=== PATIENT | male | born 1955 | race Caucasian/White ===

== ENCOUNTER 2017-11-04 20:04 | Inpatient (IN) | payer OTHER ==
[~2017-11-04] VITALS: Ht 180.3 cm; Wt 113.9 kg
[2017-11-04] MEDS ORDERED: fentaNYL PF VIAL 100 MCG/2 ML VIAL IV ONE ×2 (20:15→21:30)
[2017-11-04 20:17] LABS: BASO # 0.1 x10^3/uL (0.0-0.2); BASO % 1 % (0-3); EOS # 0.2 x10^3/uL (0.0-0.7); EOS % 2 % (0-3); HEMATOCRIT 42.4 % (39.0-53.0); HEMOGLOBIN 14.8 g/dL (13.0-17.5); LYMPH # 2.8 x10^3/uL (1.0-4.8); LYMPH % 28 % (24-48); MEAN CORPUSCULAR HEMOGLOBIN 31 pg (25-35); MEAN CORPUSCULAR HGB CONC 35 g/dL (31-37); MEAN CORPUSCULAR VOLUME 88 fL (79-100); MONO # 0.8 x10^3/uL (0.0-1.1); MONO % 8 % (0-9); NEUT # 6.1 x10^3uL (1.8-7.7); NEUT % 62 % (31-73); PLATELET COUNT 232 x10^3/uL (140-400); RED BLOOD COUNT 4.81 x10^6/uL (4.30-5.70); RED CELL DISTRIBUTION WIDTH 13.6 % (11.5-14.5); WHITE BLOOD COUNT 9.9 x10^3/uL (4.0-11.0)
[2017-11-04 20:25] LABS: CALCIUM 9.3 mg/dL (8.5-10.1); CREATININE 1.2 mg/dL (0.7-1.3); POTASSIUM 3.3 mmol/L (3.5-5.1)
[2017-11-04] MEDS ORDERED: HEPARIN for IV BOLUS 10,000 UNIT/10 ML VIAL. IV ONE (20:30)
[2017-11-04] MEDS ORDERED: NICOTINE 21MG PATCH. TD PRN (20:30)
[2017-11-04] MEDS ORDERED: POTASSIUM CHLORIDE 20 MEQ TABLET.ER. PO ONE (20:30)
[2017-11-04] MEDS ORDERED: HEPARIN 25,000UTS/500ML PREMIX 0 ML IV ONE (20:30)
[2017-11-04] MEDS ORDERED: ZOLPIDEM 5 MG TABLET. PO PRN (20:30)
[2017-11-04] MEDS ORDERED: NITROGLYCERIN PREMIX 250 ML IV ONE (20:30)
[2017-11-04] MEDS ORDERED: HYDROcodone/APAP 5/325MG 1 TAB TABLET PO PRN (20:30)
[2017-11-04] MEDS ORDERED: MORPHINE SULFATE 2 MG/ML VIAL. IV PRN (20:30)
[2017-11-04 20:31] LABS: ALBUMIN 4.4 g/dL (3.4-5.0); ALBUMIN/GLOBULIN RATIO 1.4 (1.0-1.7); TOTAL BILIRUBIN 0.4 mg/dL (0.2-1.0); TOTAL PROTEIN 7.6 g/dL (6.4-8.2)
--- NOTE | 2017-11-04 20:36 | PHYS DOC ---
Adult General Chief Complaint Chief Complaint: CHEST PAIN HPI HPI Patient is a 61 year old male who is presenting with chest pain by my and was apparently he was golfing all day today he had nausea he really wasn't feeling good and we wanted to eat dinner he had severe cramping of his chest center of the chest nonradiating and come in by sweating and he really according to the paramedics was extremely uncomfortable left bundle branch block was noted and there rhythm strip they gave aspirin and gave nitroglycerin that he activated a STEMI alert in the field. On my arrival to the room 2 minutes after the patient got here the patient was in severe distress sweating He has a family history of coronary artery disease he has a history of high cholesterol. Pain started about 1 hour ago Review of Systems Review of Systems Limited by acuity Current Medications Current Medications Current Medications Medications (Trade) Dose Ordered Sig/Martita Start Time Stop Time Status Last Admin Dose Admin Acetaminophen/ Hydrocodone Bitart (Lortab 5/325) 1 tab PRN Q4HRS PRN 11/04/17 20:30 Fentanyl Citrate (Fentanyl 2ml Vial) 50 mcg 1X ONCE 11/04/17 20:15 11/04/17 20:26 DC 11/04/17 20:19 50 MCG Heparin Sodium (Porcine) (Heparin Sodium) 4,000 unit 1X ONCE 11/04/17 20:30 11/04/17 20:31 DC 11/04/17 20:33 4,000 UNIT Heparin Sodium/ Dextrose 500 ml @ As Directed STK-MED ONCE 11/04/17 20:30 11/04/17 20:31 DC Morphine Sulfate (Morphine Sulfate) 2 mg PRN Q2HR PRN 11/04/17 20:30 Nicotine (Nicoderm Cq 21mg) 1 patch PRN DAILY PRN 11/04/17 20:30 Nitroglycerin/ Dextrose 250 ml @ 0 mls/hr 1X ONCE 11/04/17 20:30 11/04/17 20:31 DC 11/04/17 20:32 1.5 MLS/HR Potassium Chloride (Klor-Con) 40 meq 1X ONCE 11/04/17 20:30 11/04/17 20:36 DC Zolpidem Tartrate (Ambien) 5 mg PRN QHS PRN 11/04/17 20:30 Allergies Allergies Allergies Coded Allergies Type Severity Reaction Last Updated Verified No Known Drug Allergies 11/04/17 No Physical Exam Physical Exam Constitutional: Well developed, well nourished, moderate distress he is sweaty. HENT: Normocephalic, atraumatic, bilateral external ears normal, oropharynx moist, no oral exudates, nose normal. [] Eyes: PERRLA, EOMI, conjunctiva normal, no discharge. [] Neck: Normal range of motion, no tenderness, supple, no stridor. [] Cardiovascular:Heart rate regular rhythm, no murmur [] Lungs & Thorax: Bilateral breath sounds clear to auscultation [] Abdomen: Bowel sounds normal, soft, no tenderness, no masses, no pulsatile masses. [] Skin: diaphoretic Back: No tenderness, no CVA tenderness. [] Extremities: No tenderness, no cyanosis, no clubbing, ROM intact, no edema. [] Neurologic: Alert and oriented X 3, normal motor function, normal sensory function, no focal deficits noted. [] Psychologic: Affect normal, judgement normal, mood normal. [] Current Patient Data Vital Signs Vital Signs Date Time Temp Pulse Resp B/P (MAP) Pulse Ox O2 Delivery O2 Flow Rate FiO2 11/04/17 20:19 22 99 Nasal Cannula 2.0 11/04/17 20:05 97.7 84 174/81 (112) 97.7 Lab Values Laboratory Tests Test 11/04/17 20:09 11/04/17 20:10 POC Troponin I 0.00 ng/ml (<0.08) White Blood Count 9.9 x10^3/uL (4.0-11.0) Red Blood Count 4.81 x10^6/uL (4.30-5.70) Hemoglobin 14.8 g/dL (13.0-17.5) Hematocrit 42.4 % (39.0-53.0) Mean Corpuscular Volume 88 fL (79-100) Mean Corpuscular Hemoglobin 31 pg (25-35) Mean Corpuscular Hemoglobin Concent 35 g/dL (31-37) Red Cell Distribution Width 13.6 % (11.5-14.5) Platelet Count 232 x10^3/uL (140-400) Neutrophils (%) (Auto) 62 % (31-73) Lymphocytes (%) (Auto) 28 % (24-48) Monocytes (%) (Auto) 8 % (0-9) Eosinophils (%) (Auto) 2 % (0-3) Basophils (%) (Auto) 1 % (0-3) Neutrophils # (Auto) 6.1 x10^3uL (1.8-7.7) Lymphocytes # (Auto) 2.8 x10^3/uL (1.0-4.8) Monocytes # (Auto) 0.8 x10^3/uL (0.0-1.1) Eosinophils # (Auto) 0.2 x10^3/uL (0.0-0.7) Basophils # (Auto) 0.1 x10^3/uL (0.0-0.2) Sodium Level 136 mmol/L (136-145) Potassium Level 3.3 mmol/L (3.5-5.1) L Chloride Level 98 mmol/L (98-107) Carbon Dioxide Level 22 mmol/L (21-32) Anion Gap 16 (6-14) H Blood Urea Nitrogen 12 mg/dL (8-26) Creatinine 1.2 mg/dL (0.7-1.3) Estimated GFR (Cockcroft-Gault) 62.0 BUN/Creatinine Ratio 10 (6-20) Glucose Level 116 mg/dL (70-99) H Calcium Level 9.3 mg/dL (8.5-10.1) Total Bilirubin 0.4 mg/dL (0.2-1.0) Aspartate Amino Transferase (AST) 87 U/L (15-37) H Alanine Aminotransferase (ALT) 94 U/L (16-63) H Alkaline Phosphatase 73 U/L (46-116) Total Protein 7.6 g/dL (6.4-8.2) Albumin 4.4 g/dL (3.4-5.0) Albumin/Globulin Ratio 1.4 (1.0-1.7) Laboratory Tests 11/04/17 20:10 Laboratory Tests 11/04/17 20:10 EKG EKG []EKG #1 did show a left bundle-branch block with no sgarbossa review this at 8: 07 PM discussed it with the partner integration planner at 8:10 PM. We did a second EKG about 10 minutes later I reviewed that EKG as well that showed similar findings there was no obvious ischemia in light of the left bundle-branch block but there is also no old EKG. Initially at 8:10 PM we were planning to wait for clinical observation and troponins but then at 8:22 PM I spoke with Dr. Beltrán again and we opted to activate a STEMI alert due to severity of symptoms and no old EKG Radiology/Procedures Radiology/Procedures [] Impressions: Chest x-ray negative interpreted by me the time of encounter. Course & Med Decision Making Course & Med Decision Making Critical care time was 35 minutes exclusive of procedures.Pertinent Labs and Imaging studies reviewed. (See chart for details) []This a 61-year-old male with a history family history of coronary disease as well as high cholesterol was presenting with severe chest pain and found to have a left bundle-branch block on the EKG no old EKG in our system. I spoke with Dr. Beltrán operations support manager for cardiology several times during the emergency room visit. We talked at around 8:10 PM and then again at 8:22 PM. He reviewed the EKGs and the clinical picture and ultimately after discussion we both agreed to activate the STEMI [employer] Helper due to the severity of the patient's symptoms and the lack of old EKG. Patient is aware. Patient was given a dose of fentanyl in the emergency room on reevaluation at 8:30 PM he was starting to feel a little bit better. A nitro drip was initiated at the request of Dr. Beltrán a heparin bolus was given per usual This pain really denies like a dissection or pulmonary embolism. Family was notified as well aspirin prior to arrival,. Dragon Disclaimer Dragon Disclaimer This electronic medical record was generated, in whole or in part, using a voice recognition dictation system. Departure Departure Impression: Primary Impression: Chest pain Disposition: ADMITTED INPATIENT Admitting Physician: Nancy Muñoz Condition: CRITICAL DAVID OSBORN MD Nov 04, 2017 20:36
[2017-11-04] MEDS ORDERED: IODIXANOL 320 MG/ML 100 ML VIAL. ONE (20:53)
[2017-11-04] MEDS ORDERED: LIDOCAINE 1% PF 30 ML VIAL. ONE (20:53)
[2017-11-04] MEDS ORDERED: MIDAZOLAM HCL/PF 2 MG/2 ML VIAL. ONE (21:07)
[2017-11-04] MEDS ORDERED: fentaNYL PF VIAL 100 MCG/2 ML VIAL ONE (21:07)
--- NOTE | 2017-11-04 21:10 | PDOC ---
MODERATE SEDATION ASSESSMENT RISKS/ALTERNATIVES Risks/Alternatives Risks and alternatives of this type of sedation and procedure discussed with: RISK/ALTERNATIVES: Patient H & P ON CHART H & P H & P on chart and reviewed for co-morbid conditions and appropriate labs. H&P ON CHART: Yes STATUS PREG STATUS ASSESSED: N/A MEDS/ALLERGIES REVIEWED Meds/Allergies Reviewed Medications and Allergies including time and route of recently administered narcotics and sedatives. MEDS/ALLERGIES REVIEWED: Yes ASA RATING ASA RATING: II AIRWAY ASSESSMENT Airway Assessment Airway patency, oral function limitations, presence of caps, crowns, dentures, partials, and ability to extend neck assessed. AIRWAY ASSESSMENT: Yes MALLAMPATI SCORE MALLAMPATI SCORE: II PRE-SEDATION ASSESSMENT PRE-SEDATION ASSESSMENT: Yes OSBALDO PIZARRO MD Nov 04, 2017 21:10
[2017-11-04] MEDS ORDERED: LIDOCAINE 1% PF 30 ML VIAL. INJ ONE (21:30)
[2017-11-04] MEDS ORDERED: IODIXANOL 320 MG/ML 100 ML VIAL. IART ONE (21:30)
[2017-11-04] MEDS ORDERED: MIDAZOLAM HCL/PF 2 MG/2 ML VIAL. IV ONE (21:30)
[2017-11-04 21:58] VITALS: BP 150/68
[2017-11-04 22:15] VITALS: BP 126/55
--- NOTE | 2017-11-04 22:16 | PDOC2 ---
CONSULT Date of Consult Date of Consult DATE: 11/04/17 TIME: 22:05 Reason for Consult Reason for Consult: Chest pain Referring Physician Referring Physician: Dr. Muñoz Identification/Chief Complaint Chief Complaint chest pain Source Source: Patient History of Present Illness Reason for Visit: 61 year old male who developed severe chest pain approximately one hour ago. He had been playing golf in severe heat earlier today and began to feel nauseated and weak. History of HLD but no history of CAD or CHF. Positive family history of CAD. The patient continued to have pain and diaphoresis in the ER. EKG showed a probable L bundle branch block. No old EKGs for comparison. Past Medical History Cardiovascular: Hyperlipidemia Past Surgical History Past Surgical History: No pertinent history Family History Family History: Coronary Artery Disease Social History No Current Medications Current Medications Current Medications Fentanyl Citrate (Fentanyl 2ml Vial) 50 mcg 1X ONCE IV Last administered on 11/04/17at 20:19; Start 11/04/17 at 20:15; Stop 11/04/17 at 20:26; Status DC Nitroglycerin/ Dextrose 250 ml @ 0 mls/hr 1X ONCE IV Last administered on at 20:32; Start 11/04/17 at 20:30; Stop 11/04/17 at 20:31; Status DC Heparin Sodium (Porcine) (Heparin Sodium) 4,000 unit 1X ONCE IV Last administered on 11/04/17at 20:33; Start 11/04/17 at 20:30; Stop 11/04/17 at 20:31; Status DC Heparin Sodium/ Dextrose 500 ml @ As Directed STK-MED ONCE IV ; Start 11/04/17 at 20:30; Stop 11/04/17 at 20:31; Status DC Potassium Chloride (Klor-Con) 40 meq 1X ONCE PO ; Start 11/04/17 at 20:30; Stop 11/04/17 at 20:36; Status DC Zolpidem Tartrate (Ambien) 5 mg PRN QHS PRN PO INSOMNIA; Start 11/04/17 at 20:30 Morphine Sulfate (Morphine Sulfate) 2 mg PRN Q2HR PRN IV PAIN; Start 11/04/17 at 20:30 Acetaminophen/ Hydrocodone Bitart (Lortab 5/325) 1 tab PRN Q4HRS PRN PO PAIN; Start 11/04/17 at 20:30 Nicotine (Nicoderm Cq 21mg) 1 patch PRN DAILY PRN TD SMOKING CESSATION; Start 11/04/17 at 20:30 Iodixanol (Visipaque 320) 100 ml STK-MED ONCE .ROUTE ; Start 11/04/17 at 20:53; Stop 11/04/17 at 20:54; Status DC Lidocaine HCl (Xylocaine 1% Pf 30ml Vial) 30 ml STK-MED ONCE .ROUTE ; Start 11/04 at 20:53; Stop 11/04/17 at 20:54; Status DC Heparin Sodium/ Sodium Chloride 1,000 ml @ As Directed STK-MED ONCE .ROUTE ; Start 11/04/17 at 20:53; Stop 11/04/17 at 20:54; Status DC Heparin Sodium/ Sodium Chloride 500 ml @ As Directed STK-MED ONCE .ROUTE ; Start 11/04/17 at 21:02; Stop 11/04/17 at 21:03; Status DC Fentanyl Citrate (Fentanyl 2ml Vial) 100 mcg STK-MED ONCE .ROUTE ; Start at 21:07; Stop 11/04/17 at 21:08; Status DC Midazolam HCl (Versed) 2 mg STK-MED ONCE .ROUTE ; Start 11/04/17 at 21:07; Stop 11/04/17 at 21:08; Status DC Heparin Sodium/ Sodium Chloride (HEPARIN for ARTERIAL LINE FLUSH) 1,000 unit 1X ONCE IART Last administered on 11/04/17at 21:30; Start 11/04/17 at 21:30; Stop 11/04/17 at 21:31; Status DC Midazolam HCl (Versed) 2 mg 1X ONCE IV ; Start 11/04/17 at 21:30; Stop 11/04/17 at 21:31; Status DC Fentanyl Citrate (Fentanyl 2ml Vial) 100 mcg 1X ONCE IV ; Start 11/04/17 at 21: 30; Stop 11/04/17 at 21:31; Status DC Iodixanol (Visipaque 320) 100 ml 1X ONCE IART Last administered on 11/04/17at 21 :30; Start 11/04/17 at 21:30; Stop 11/04/17 at 21:31; Status DC Lidocaine HCl (Xylocaine 1% Pf 30ml Vial) 30 ml 1X ONCE INJ Last administered on 11/04/17at 21:30; Start 11/04/17 at 21:30; Stop 11/04/17 at 21:31; Status DC Allergies Allergies: Coded Allergies: No Known Drug Allergies (Unverified , 11/04/17) ROS Respiratory: YES: Shortness of breath Cardiovascular: yes Chest Pain Gastrointestinal: Yes Nausea Physical Exam General: Other (chest pain continues) HEENT: EOMI Lungs: Clear to auscultation Heart: Regular rate Abdomen: Normal bowel sounds Vitals VITALS Vital Signs Date Time Temp Pulse Resp B/P (MAP) Pulse Ox O2 Delivery O2 Flow Rate FiO2 11/04/17 21:58 73 18 95 Room Air 11/04/17 20:19 2.0 11/04/17 20:05 97.7 174/81 (112) 97.7 Labs Labs Laboratory Tests Test 11/04/17 20:09 11/04/17 20:10 Bedside Troponin I 0.00 ng/ml (<0.08) White Blood Count 9.9 x10^3/uL (4.0-11.0) Red Blood Count 4.81 x10^6/uL (4.30-5.70) Hemoglobin 14.8 g/dL (13.0-17.5) Hematocrit 42.4 % (39.0-53.0) Mean Corpuscular Volume 88 fL (79-100) Mean Corpuscular Hemoglobin 31 pg (25-35) Mean Corpuscular Hemoglobin Concent 35 g/dL (31-37) Red Cell Distribution Width 13.6 % (11.5-14.5) Platelet Count 232 x10^3/uL (140-400) Neutrophils (%) (Auto) 62 % (31-73) Lymphocytes (%) (Auto) 28 % (24-48) Monocytes (%) (Auto) 8 % (0-9) Eosinophils (%) (Auto) 2 % (0-3) Basophils (%) (Auto) 1 % (0-3) Neutrophils # (Auto) 6.1 x10^3uL (1.8-7.7) Lymphocytes # (Auto) 2.8 x10^3/uL (1.0-4.8) Monocytes # (Auto) 0.8 x10^3/uL (0.0-1.1) Eosinophils # (Auto) 0.2 x10^3/uL (0.0-0.7) Basophils # (Auto) 0.1 x10^3/uL (0.0-0.2) Sodium Level 136 mmol/L (136-145) Potassium Level 3.3 mmol/L (3.5-5.1) Chloride Level 98 mmol/L (98-107) Carbon Dioxide Level 22 mmol/L (21-32) Anion Gap 16 (6-14) Blood Urea Nitrogen 12 mg/dL (8-26) Creatinine 1.2 mg/dL (0.7-1.3) Estimated GFR (Cockcroft-Gault) 62.0 BUN/Creatinine Ratio 10 (6-20) Glucose Level 116 mg/dL (70-99) Calcium Level 9.3 mg/dL (8.5-10.1) Total Bilirubin 0.4 mg/dL (0.2-1.0) Aspartate Amino Transf (AST/SGOT) 87 U/L (15-37) Alanine Aminotransferase (ALT/SGPT) 94 U/L (16-63) Alkaline Phosphatase 73 U/L (46-116) Total Protein 7.6 g/dL (6.4-8.2) Albumin 4.4 g/dL (3.4-5.0) Albumin/Globulin Ratio 1.4 (1.0-1.7) Laboratory Tests Test 11/04/17 20:09 11/04/17 20:10 Bedside Troponin I 0.00 ng/ml (<0.08) White Blood Count 9.9 x10^3/uL (4.0-11.0) Red Blood Count 4.81 x10^6/uL (4.30-5.70) Hemoglobin 14.8 g/dL (13.0-17.5) Hematocrit 42.4 % (39.0-53.0) Mean Corpuscular Volume 88 fL (79-100) Mean Corpuscular Hemoglobin 31 pg (25-35) Mean Corpuscular Hemoglobin Concent 35 g/dL (31-37) Red Cell Distribution Width 13.6 % (11.5-14.5) Platelet Count 232 x10^3/uL (140-400) Neutrophils (%) (Auto) 62 % (31-73) Lymphocytes (%) (Auto) 28 % (24-48) Monocytes (%) (Auto) 8 % (0-9) Eosinophils (%) (Auto) 2 % (0-3) Basophils (%) (Auto) 1 % (0-3) Neutrophils # (Auto) 6.1 x10^3uL (1.8-7.7) Lymphocytes # (Auto) 2.8 x10^3/uL (1.0-4.8) Monocytes # (Auto) 0.8 x10^3/uL (0.0-1.1) Eosinophils # (Auto) 0.2 x10^3/uL (0.0-0.7) Basophils # (Auto) 0.1 x10^3/uL (0.0-0.2) Sodium Level 136 mmol/L (136-145) Potassium Level 3.3 mmol/L (3.5-5.1) Chloride Level 98 mmol/L (98-107) Carbon Dioxide Level 22 mmol/L (21-32) Anion Gap 16 (6-14) Blood Urea Nitrogen 12 mg/dL (8-26) Creatinine 1.2 mg/dL (0.7-1.3) Estimated GFR (Cockcroft-Gault) 62.0 BUN/Creatinine Ratio 10 (6-20) Glucose Level 116 mg/dL (70-99) Calcium Level 9.3 mg/dL (8.5-10.1) Total Bilirubin 0.4 mg/dL (0.2-1.0) Aspartate Amino Transf (AST/SGOT) 87 U/L (15-37) Alanine Aminotransferase (ALT/SGPT) 94 U/L (16-63) Alkaline Phosphatase 73 U/L (46-116) Total Protein 7.6 g/dL (6.4-8.2) Albumin 4.4 g/dL (3.4-5.0) Albumin/Globulin Ratio 1.4 (1.0-1.7) Assessment/Plan Assessment/Plan 1. Chest pain. Severe chest pain now improved post pain medications. EKG with a bundle branch block. Personal history of HLD and a family history of CAD. In this setting believe emergency cath is indicated to check for possible CAD or infarct. Risks and benefits discussed with the patient and his family. He has agreed to proceed. 2. History of HLD. Will check lab and continue statins. 3. Accelerated HTN. Associated with pain. IV NTG at present. 4. HypoK Will replace and monitor. Thank you for allowing us to participate in the care of your patient. OSBALDO PIZARRO MD Nov 04, 2017 22:16
--- NOTE | 2017-11-04 22:28 | PDOC4 ---
OPERATIVE NOTE: Brief cath note. No significant CAD. Intact LV systolic function. Normal aortic root. Treating with IV fluids, NTG for HTN and potassium replacement. Stat d dimer ordered. Discussed with the patient and his family. Also discussed with the ICU. Full report to follow. OSBALDO PIZARRO MD Nov 04, 2017 22:27
[2017-11-04 22:30] VITALS: BP 113/63
[2017-11-04] MEDS ORDERED: oxyCODONE/APAP 5/325 1 TAB TABLET PO PRN (22:30)
[2017-11-04] MEDS ORDERED: NITROGLYCERIN SUBLINGUAL 0.4 MG BOTTLE OF 25. SL PRN (22:30)
[2017-11-04] MEDS ORDERED: 0.9 % SODIUM CHLORIDE 10 ML DISP.SYRIN. IV PRN (22:30)
[2017-11-04] MEDS: IV NORMAL SALINE 1000ML BAG 1,000 ML IV SCH (22:32)
[2017-11-04 22:45] VITALS: BP 127/59
--- NOTE | 2017-11-04 22:54 | RAD ---
AP chest x-ray HISTORY: Chest pain. FINDINGS: Borderline cardiomegaly may be magnified by the AP portable technique. Mediastinal silhouette is unremarkable. No pneumothorax, pulmonary opacities or pleural effusions. Bones are unremarkable. IMPRESSION: No acute process. Electronically signed by: Faisal Chang MD (11/04/2017 10:50 PM) [id number]
[2017-11-04 23:00] VITALS: BP 107/61
[2017-11-04 23:15] VITALS: BP 113/59
[2017-11-04] MEDS ORDERED: CRESTOR20 MG PO (23:47)
[2017-11-05] VITALS (15 sets, daily range): BP systolic 97–159; BP diastolic 48–73
[2017-11-05] MEDS ORDERED: ONDANSETRON PF 4 MG/2 ML VIAL. IV PRN
[2017-11-05 03:42] LABS: BASO % 0 % (0-3); EOS # 0.1 x10^3/uL (0.0-0.7); EOS % 2 % (0-3); HEMATOCRIT 39.6 % (39.0-53.0); HEMOGLOBIN 13.8 g/dL (13.0-17.5); LYMPH # 1.1 x10^3/uL (1.0-4.8); LYMPH % 16 % (24-48); MEAN CORPUSCULAR HEMOGLOBIN 31 pg (25-35); MEAN CORPUSCULAR HGB CONC 35 g/dL (31-37); MEAN CORPUSCULAR VOLUME 88 fL (79-100); MONO # 0.4 x10^3/uL (0.0-1.1); MONO % 6 % (0-9); NEUT # 5.2 x10^3uL (1.8-7.7); NEUT % 76 % (31-73); PLATELET COUNT 209 x10^3/uL (140-400); RED CELL DISTRIBUTION WIDTH 13.9 % (11.5-14.5); WHITE BLOOD COUNT 6.9 x10^3/uL (4.0-11.0)
[2017-11-05 03:45] LABS: ALBUMIN 3.7 g/dL (3.4-5.0); ALBUMIN/GLOBULIN RATIO 1.4 (1.0-1.7); CALCIUM 8.7 mg/dL (8.5-10.1); GFR 76.5; POTASSIUM 4.1 mmol/L (3.5-5.1); TOTAL BILIRUBIN 0.3 mg/dL (0.2-1.0); TOTAL PROTEIN 6.4 g/dL (6.4-8.2)
[2017-11-05 03:48] LABS: CHOLESTEROL/HDL RATIO 4.8
--- NOTE | 2017-11-05 07:24 | EKG ---
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
--- NOTE | 2017-11-05 07:25 | EKG ---
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
[2017-11-05] MEDS: ASPIRIN ENTERIC COATED 81 MG TABLET.DR. PO SCH (09:58)
[2017-11-05] MEDS: IV NORMAL SALINE 1000ML BAG 1,000 ML IV SCH ×2 (10:01→20:18)
[2017-11-05] MEDS ORDERED: IBUPROFEN 600 MG TABLET. PO PRN (12:45)
--- NOTE | 2017-11-05 14:06 | CARD ---
MR#: [id number] Date of Study: 11/04/2017 Ordering Physician: OSBALDO DE LA TORRE, Referring Physician: MARINO ALVARADO Tech: Checo Paul, RT (R) APPROVED REPORT Procedures Left heart catheterization. Left ventriculogram. Selective coronary angiogram. Aortic root injection. The patient is a 61-year-old male who was admitted to the emergency room with one to 2 hours of sever e chest pain. In the emergency room the patient had continued chest pain and diaphoresis. EKG showed a sinus rhythm with a probable left bundle branch block but no old EKGs were available. Patient's gabe n persisted despite treatment. In this setting a cardiac catheterization was recommended to exclude u nderlying coronary artery disease in the setting of severe chest pain and an abnormal EKG. Risks and benefits were discussed with the patient. He agreed to proceed. After informed consent was obtained the patient was brought to the heart catheterization lab. The are a of the right femoral artery was prepared in the usual manner with Betadine, sterile draping and loc al anesthetic. An 18-gauge needle was used to enter the right femoral artery, a wire placed and a 6 F rench sheath placed over the wire. A 6 British JL4 diagnostic catheter was advanced to the ascending a mike and used to engage the left coronary system. Sequential injections in various views were obtaine d. A 6 British Lizandro diagnostic catheter was advanced to the ascending aorta. It was used for seque ntial injections of the right coronary artery. A pigtail catheter was advanced into ascending aorta a nd then the left ventricle. A 30 BROWN left ventriculogram was performed. Pullback pressures were monique ured. A 30 [place] aortic root injection was performed. Review of the images showed no significant coron carmen lesions. Injection the sheath showed normal placement. The sheath was removed and sealed with an Angio-Seal product. The patient was moved to the holding area. Findings. Hemodynamics. LV 130/5, 14. Aortic root 130/62. Coronaries. Left main. The left main was a normal-size vessel with no lesions. Left anterior descending. The LAD was a moderate size vessel with normal distribution. It had mild mi d tapering of 10% but no lesions. Left circumflex. The left circumflex is a moderate size nondominant vessel. It had no lesions. Right coronary artery. The right coronary was a larger dominant vessel. It had no lesions. Left ventriculogram. The left ventricle showed normal left ventricular systolic function with an ejection fraction of 50-5 5%. There was very slight distal anterior hypokinesis possibly influenced by the patient's bundle bra nch block. Aortic root. The aortic root was of normal size. There was no significant aortic insufficiency. There was no evide nce of a dissection. <Conclusion> 1. No angiographic evidence of significant coronary artery disease. 2. Normal left ventricular systolic function. 3. Normal aortic root. Signed by : Osbaldo De La Torre MD Electronically Approved : 11/05/2017 14:05:47
--- NOTE | 2017-11-05 14:23 | PDOC ---
PROGRESS NOTES Subjective Subjective Patient seen and examined The patient looks and feels better today. Objective Objective Vital Signs Date Time Temp Pulse Resp B/P (MAP) Pulse Ox O2 Delivery O2 Flow Rate FiO2 11/05/17 10:00 67 17 159/69 (99) 96 Room Air 11/05/17 07:30 98.7 98.7 11/05/17 06:00 2.0 Intake and Output 11/05/17 07:00 Intake Total 756 ml Output Total 800 ml Balance -44 ml IV Total 756 ml Output Urine Total 800 ml Physical Exam Abdomen: Normal bowel sounds Heart: Regular rate General: No acute distress Lungs: Clear to auscultation Assessment Assessment 1. Chest pain. No acute infarction. Cath last night showed no significant coronary artery disease and intact LV function. We'll continue on aspirin and statin medications for his hyperlipidemia. We will increase activities today. May transfer to the second floor. 2. Hyperlipidemia. Continue statins. 3. Hypertension. We'll start DOC inhibitor as today. Taper off IV nitroglycerin. 4. Dehydration. Continue IV fluids. Creatinine elevated at 2475. Will continue to monitor lab. Comment Review of Relevant I have reviewed the following items bret (where applicable) has been applied. Labs Laboratory Tests Test 11/04/17 20:09 11/04/17 20:10 11/05/17 02:40 Bedside Troponin I 0.00 ng/ml (<0.08) White Blood Count 9.9 x10^3/uL (4.0-11.0) 6.9 x10^3/uL (4.0-11.0) Red Blood Count 4.81 x10^6/uL (4.30-5.70) 4.50 x10^6/uL (4.30-5.70) Hemoglobin 14.8 g/dL (13.0-17.5) 13.8 g/dL (13.0-17.5) Hematocrit 42.4 % (39.0-53.0) 39.6 % (39.0-53.0) Mean Corpuscular Volume 88 fL (79-100) 88 fL (79-100) Mean Corpuscular Hemoglobin 31 pg (25-35) 31 pg (25-35) Mean Corpuscular Hemoglobin Concent 35 g/dL (31-37) 35 g/dL (31-37) Red Cell Distribution Width 13.6 % (11.5-14.5) 13.9 % (11.5-14.5) Platelet Count 232 x10^3/uL (140-400) 209 x10^3/uL (140-400) Neutrophils (%) (Auto) 62 % (31-73) 76 % (31-73) Lymphocytes (%) (Auto) 28 % (24-48) 16 % (24-48) Monocytes (%) (Auto) 8 % (0-9) 6 % (0-9) Eosinophils (%) (Auto) 2 % (0-3) 2 % (0-3) Basophils (%) (Auto) 1 % (0-3) 0 % (0-3) Neutrophils # (Auto) 6.1 x10^3uL (1.8-7.7) 5.2 x10^3uL (1.8-7.7) Lymphocytes # (Auto) 2.8 x10^3/uL (1.0-4.8) 1.1 x10^3/uL (1.0-4.8) Monocytes # (Auto) 0.8 x10^3/uL (0.0-1.1) 0.4 x10^3/uL (0.0-1.1) Eosinophils # (Auto) 0.2 x10^3/uL (0.0-0.7) 0.1 x10^3/uL (0.0-0.7) Basophils # (Auto) 0.1 x10^3/uL (0.0-0.2) 0.0 x10^3/uL (0.0-0.2) D-Dimer (Elda) 0.34 ug/mlFEU (0.00-0.50) Sodium Level 136 mmol/L (136-145) 140 mmol/L (136-145) Potassium Level 3.3 mmol/L (3.5-5.1) 4.1 mmol/L (3.5-5.1) Chloride Level 98 mmol/L (98-107) 104 mmol/L (98-107) Carbon Dioxide Level 22 mmol/L (21-32) 27 mmol/L (21-32) Anion Gap 16 (6-14) 9 (6-14) Blood Urea Nitrogen 12 mg/dL (8-26) 13 mg/dL (8-26) Creatinine 1.2 mg/dL (0.7-1.3) 1.0 mg/dL (0.7-1.3) Estimated GFR (Cockcroft-Gault) 62.0 76.5 BUN/Creatinine Ratio 10 (6-20) 13 (6-20) Glucose Level 116 mg/dL (70-99) 144 mg/dL (70-99) Calcium Level 9.3 mg/dL (8.5-10.1) 8.7 mg/dL (8.5-10.1) Total Bilirubin 0.4 mg/dL (0.2-1.0) 0.3 mg/dL (0.2-1.0) Aspartate Amino Transf (AST/SGOT) 87 U/L (15-37) 59 U/L (15-37) Alanine Aminotransferase (ALT/SGPT) 94 U/L (16-63) 78 U/L (16-63) Alkaline Phosphatase 73 U/L (46-116) 63 U/L (46-116) Total Protein 7.6 g/dL (6.4-8.2) 6.4 g/dL (6.4-8.2) Albumin 4.4 g/dL (3.4-5.0) 3.7 g/dL (3.4-5.0) Albumin/Globulin Ratio 1.4 (1.0-1.7) 1.4 (1.0-1.7) Magnesium Level 2.0 mg/dL (1.8-2.4) Creatine Kinase 2475 U/L (39-308) Creatine Kinase MB (Mass) 28.5 ng/mL (0.0-3.6) Creatine Kinase MB Relative Index 1.2 % (0-4) Troponin I Quantitative < 0.017 ng/mL (0.000-0.055) Triglycerides Level 432 mg/dL (0-150) Cholesterol Level 159 mg/dL (0-200) LDL Cholesterol, Calculated 40 mg/dL (0-100) VLDL Cholesterol, Calculated 86 mg/dL (0-40) Non-HDL Cholesterol Calculated 126 mg/dL (0-129) HDL Cholesterol 33 mg/dL (40-60) Cholesterol/HDL Ratio 4.8 Laboratory Tests Test 11/04/17 20:09 11/04/17 20:10 11/05/17 02:40 Bedside Troponin I 0.00 ng/ml (<0.08) White Blood Count 9.9 x10^3/uL (4.0-11.0) 6.9 x10^3/uL (4.0-11.0) Red Blood Count 4.81 x10^6/uL (4.30-5.70) 4.50 x10^6/uL (4.30-5.70) Hemoglobin 14.8 g/dL (13.0-17.5) 13.8 g/dL (13.0-17.5) Hematocrit 42.4 % (39.0-53.0) 39.6 % (39.0-53.0) Mean Corpuscular Volume 88 fL (79-100) 88 fL (79-100) Mean Corpuscular Hemoglobin 31 pg (25-35) 31 pg (25-35) Mean Corpuscular Hemoglobin Concent 35 g/dL (31-37) 35 g/dL (31-37) Red Cell Distribution Width 13.6 % (11.5-14.5) 13.9 % (11.5-14.5) Platelet Count 232 x10^3/uL (140-400) 209 x10^3/uL (140-400) Neutrophils (%) (Auto) 62 % (31-73) 76 % (31-73) Lymphocytes (%) (Auto) 28 % (24-48) 16 % (24-48) Monocytes (%) (Auto) 8 % (0-9) 6 % (0-9) Eosinophils (%) (Auto) 2 % (0-3) 2 % (0-3) Basophils (%) (Auto) 1 % (0-3) 0 % (0-3) Neutrophils # (Auto) 6.1 x10^3uL (1.8-7.7) 5.2 x10^3uL (1.8-7.7) Lymphocytes # (Auto) 2.8 x10^3/uL (1.0-4.8) 1.1 x10^3/uL (1.0-4.8) Monocytes # (Auto) 0.8 x10^3/uL (0.0-1.1) 0.4 x10^3/uL (0.0-1.1) Eosinophils # (Auto) 0.2 x10^3/uL (0.0-0.7) 0.1 x10^3/uL (0.0-0.7) Basophils # (Auto) 0.1 x10^3/uL (0.0-0.2) 0.0 x10^3/uL (0.0-0.2) D-Dimer (Elda) 0.34 ug/mlFEU (0.00-0.50) Sodium Level 136 mmol/L (136-145) 140 mmol/L (136-145) Potassium Level 3.3 mmol/L (3.5-5.1) 4.1 mmol/L (3.5-5.1) Chloride Level 98 mmol/L (98-107) 104 mmol/L (98-107) Carbon Dioxide Level 22 mmol/L (21-32) 27 mmol/L (21-32) Anion Gap 16 (6-14) 9 (6-14) Blood Urea Nitrogen 12 mg/dL (8-26) 13 mg/dL (8-26) Creatinine 1.2 mg/dL (0.7-1.3) 1.0 mg/dL (0.7-1.3) Estimated GFR (Cockcroft-Gault) 62.0 76.5 BUN/Creatinine Ratio 10 (6-20) 13 (6-20) Glucose Level 116 mg/dL (70-99) 144 mg/dL (70-99) Calcium Level 9.3 mg/dL (8.5-10.1) 8.7 mg/dL (8.5-10.1) Total Bilirubin 0.4 mg/dL (0.2-1.0) 0.3 mg/dL (0.2-1.0) Aspartate Amino Transf (AST/SGOT) 87 U/L (15-37) 59 U/L (15-37) Alanine Aminotransferase (ALT/SGPT) 94 U/L (16-63) 78 U/L (16-63) Alkaline Phosphatase 73 U/L (46-116) 63 U/L (46-116) Total Protein 7.6 g/dL (6.4-8.2) 6.4 g/dL (6.4-8.2) Albumin 4.4 g/dL (3.4-5.0) 3.7 g/dL (3.4-5.0) Albumin/Globulin Ratio 1.4 (1.0-1.7) 1.4 (1.0-1.7) Magnesium Level 2.0 mg/dL (1.8-2.4) Creatine Kinase 2475 U/L (39-308) Creatine Kinase MB (Mass) 28.5 ng/mL (0.0-3.6) Creatine Kinase MB Relative Index 1.2 % (0-4) Troponin I Quantitative < 0.017 ng/mL (0.000-0.055) Triglycerides Level 432 mg/dL (0-150) Cholesterol Level 159 mg/dL (0-200) LDL Cholesterol, Calculated 40 mg/dL (0-100) VLDL Cholesterol, Calculated 86 mg/dL (0-40) Non-HDL Cholesterol Calculated 126 mg/dL (0-129) HDL Cholesterol 33 mg/dL (40-60) Cholesterol/HDL Ratio 4.8 Medications Current Medications Fentanyl Citrate (Fentanyl 2ml Vial) 50 mcg 1X ONCE IV Last administered on 11/04/17at 20:19; Start 11/04/17 at 20:15; Stop 11/04/17 at 20:26; Status DC Nitroglycerin/ Dextrose 250 ml @ 0 mls/hr 1X ONCE IV Last administered on at 20:32; Start 11/04/17 at 20:30; Stop 11/04/17 at 20:31; Status DC Heparin Sodium (Porcine) (Heparin Sodium) 4,000 unit 1X ONCE IV Last administered on 11/04/17at 20:33; Start 11/04/17 at 20:30; Stop 11/04/17 at 20:31; Status DC Heparin Sodium/ Dextrose 0 ml @ As Directed STK-MED ONCE IV ; Start 11/04/17 at 20:30; Stop 11/04/17 at 20:31; Status DC Potassium Chloride (Klor-Con) 40 meq 1X ONCE PO Last administered on 11/04/17at 22:32; Start 11/04/17 at 20:30; Stop 11/04/17 at 20:36; Status DC Zolpidem Tartrate (Ambien) 5 mg PRN QHS PRN PO INSOMNIA; Start 11/04/17 at 20:30 Morphine Sulfate (Morphine Sulfate) 2 mg PRN Q2HR PRN IV severe pain Last administered on 11/04/17at 22:27; Start 11/04/17 at 20:30 Acetaminophen/ Hydrocodone Bitart (Lortab 5/325) 1 tab PRN Q4HRS PRN PO mild pain Last administered on 11/05/17at 00:04; Start 11/04/17 at 20:30 Nicotine (Nicoderm Cq 21mg) 1 patch PRN DAILY PRN TD SMOKING CESSATION; Start 11/04/17 at 20:30 Iodixanol (Visipaque 320) 100 ml STK-MED ONCE .ROUTE ; Start 11/04/17 at 20:53; Stop 11/04/17 at 20:54; Status DC Lidocaine HCl (Xylocaine 1% Pf 30ml Vial) 30 ml STK-MED ONCE .ROUTE ; Start 11/04 at 20:53; Stop 11/04/17 at 20:54; Status DC Heparin Sodium/ Sodium Chloride 1,000 ml @ As Directed STK-MED ONCE .ROUTE ; Start 11/04/17 at 20:53; Stop 11/04/17 at 20:54; Status DC Heparin Sodium/ Sodium Chloride 500 ml @ As Directed STK-MED ONCE .ROUTE ; Start 11/04/17 at 21:02; Stop 11/04/17 at 21:03; Status DC Fentanyl Citrate (Fentanyl 2ml Vial) 100 mcg STK-MED ONCE .ROUTE ; Start at 21:07; Stop 11/04/17 at 21:08; Status DC Midazolam HCl (Versed) 2 mg STK-MED ONCE .ROUTE ; Start 11/04/17 at 21:07; Stop 11/04/17 at 21:08; Status DC Heparin Sodium/ Sodium Chloride (HEPARIN for ARTERIAL LINE FLUSH) 1,000 unit 1X ONCE IART Last administered on 11/04/17at 21:30; Start 11/04/17 at 21:30; Stop 11/04/17 at 21:31; Status DC Midazolam HCl (Versed) 2 mg 1X ONCE IV ; Start 11/04/17 at 21:30; Stop 11/04/17 at 21:31; Status DC Fentanyl Citrate (Fentanyl 2ml Vial) 100 mcg 1X ONCE IV ; Start 11/04/17 at 21: 30; Stop 11/04/17 at 21:31; Status DC Iodixanol (Visipaque 320) 100 ml 1X ONCE IART Last administered on 11/04/17at 21 :30; Start 11/04/17 at 21:30; Stop 11/04/17 at 21:31; Status DC Lidocaine HCl (Xylocaine 1% Pf 30ml Vial) 30 ml 1X ONCE INJ Last administered on 11/04/17at 21:30; Start 11/04/17 at 21:30; Stop 11/04/17 at 21:31; Status DC Sodium Chloride (Normal Saline Flush) 3 ml QSHIFT PRN IV AFTER MEDS AND BLOOD DRAWS; Start 11/04/17 at 22:30 Sodium Chloride 1,000 ml @ 100 mls/hr Q10H IV Last administered on 11/05/17at 10 :01; Start 11/04/17 at 22:16 Aspirin (Ecotrin) 81 mg [id number] PO Last administered on 11/05/17at 09:58; Start 11/05/17 at 08:00 Nitroglycerin (Nitrostat) 0.4 mg PRN Q5MIN PRN SL CHEST PAIN; Start 11/04/17 at 22:30 Oxycodone/ Acetaminophen (Percocet 5/325) 2 tab PRN Q4HRS PRN PO MODERATE PAIN , SEVERE PAIN; Start 11/04/17 at 22:30 Ondansetron HCl (Zofran) 4 mg PRN Q6HRS PRN IV NAUSEA/VOMITING 1ST CHOICE Last administered on 11/05/17at 00:03; Start 11/05/17 at 00:00 Ibuprofen (Motrin) 600 mg PRN Q6HRS PRN PO INFLAMMATION; Start 11/05/17 at 12:45 Active Scripts Active Reported Crestor (Rosuvastatin Calcium) 20 Mg Tablet 1 Tab PO DAILY Vitals/I & O Vital Sign - Last 24 Hours 11/04/17 11/04/17 11/04/17 11/04/17 20:05 20:14 20:19 20:29 Temp 97.7 97.7 Pulse 84 76 78 Resp 22 22 B/P (MAP) 174/81 (112) 176/84 (114) 151/74 (99) Pulse Ox 98 99 99 98 O2 Delivery Nasal Cannula Nasal Cannula Nasal Cannula Nasal Cannula O2 Flow Rate 2.0 2.0 2.0 2.0 11/04/17 11/04/17 11/04/17 11/04/17 20:44 20:54 21:30 21:58 Pulse 76 80 73 Resp 20 18 B/P (MAP) 152/69 (96) 158/75 (102) Pulse Ox 97 97 95 O2 Delivery Nasal Cannula Nasal Cannula Room Air O2 Flow Rate 2.0 2.0 11/04/17 11/04/17 11/04/17 11/04/17 22:15 22:15 22:27 22:30 Temp 98.9 98.9 Pulse 76 76 Resp 14 14 14 B/P (MAP) 126/55 (78) 113/63 (80) Pulse Ox 96 95 95 O2 Delivery Room Air Room Air Room Air Room Air 11/04/17 11/04/17 11/04/17 11/04/17 22:45 22:57 23:00 23:15 Pulse 74 76 74 Resp 14 14 14 14 B/P (MAP) 127/59 (81) 107/61 (76) 113/59 (77) Pulse Ox 94 96 94 94 O2 Delivery Room Air Room Air Room Air Room Air 11/05/17 11/05/17 11/05/17 11/05/17 00:00 00:00 00:04 01:00 Pulse 78 78 Resp 16 16 16 B/P (MAP) 105/54 (71) 97/48 (64) Pulse Ox 92 96 92 O2 Delivery Room Air Room Air Room Air 11/05/17 11/05/17 11/05/17 11/05/17 01:00 01:04 02:00 03:00 Pulse 80 74 Resp 16 16 B/P (MAP) 108/58 (75) 110/58 (75) Pulse Ox 94 98 98 O2 Delivery Nasal Cannula Room Air Nasal Cannula Nasal Cannula O2 Flow Rate 2.0 2.0 2.0 11/05/17 11/05/17 11/05/17 11/05/17 04:00 04:00 05:00 06:00 Pulse 74 71 68 Resp 16 16 16 B/P (MAP) 107/56 (73) 116/49 (71) 118/60 (79) Pulse Ox 99 99 99 O2 Delivery Nasal Cannula Nasal Cannula Nasal Cannula Nasal Cannula O2 Flow Rate 2.0 2.0 2.0 2.0 11/05/17 11/05/17 11/05/17 11/05/17 07:30 07:30 08:00 09:00 Temp 98.7 98.7 Pulse 62 64 65 Resp 18 18 17 B/P (MAP) 148/67 (94) 121/61 (81) 141/65 (90) Pulse Ox 92 96 96 O2 Delivery Room Air Room Air Room Air Room Air 11/05/17 10:00 Pulse 67 Resp 17 B/P (MAP) 159/69 (99) Pulse Ox 96 O2 Delivery Room Air Intake and Output 11/04/17 11/04/17 11/05/17 15:00 23:00 07:00 Intake Total 756 ml Output Total 800 ml Balance -800 ml 756 ml OSBALDO PIZARRO MD Nov 05, 2017 14:23
--- NOTE | 2017-11-05 15:01 | HP ---
ADMIT DATE: 11/05/2017 CHIEF COMPLAINT: Chest pain, nausea, cramping in the middle of the chest, sweating. HISTORY OF PRESENT ILLNESS: The patient is a pleasant 61-year-old relatively healthy gentleman who presented with the above chief complaints. Basically, he had been golfing earlier in the day, was out in the sun. Then, he went home to eat. While he was eating, he developed severe cramps in his chest. He had associated nausea, then began sweating. His called the paramedics. When they got there, he was in the left bundle branch block. We gave him aspirin, nitro and called a STEMI alert in the field. 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 Beltrán. Apparently, no coronary artery disease was noted. The patient has now been admitted to the ICU. It should be noted that his CPK level is high at 2475. I suspect he might have rhabdomyolysis, but I am also concerned he could have gallstones as well. We are going to admit the patient and get an ultrasound of his gallbladder and monitor him in the ICU. PAST MEDICAL HISTORY: Hyperlipidemia. ALLERGIES: None, but I AM CONCERNED HE COULD ACTUALLY POSSIBLY HAVE AN ALLERGY TO STATINS because his CPK level is high, but he has also been out in the sun, I am not sure if this all could occur at one time, perhaps he has just rhabdo from being dehydrated. FAMILY HISTORY: Diabetes. SOCIAL HISTORY: He does not drink, smoke or take drugs. 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 He is . MEDICATIONS: Reviewed. He is on Crestor. REVIEW OF SYSTEMS: GENERAL: No history of weight change, weakness or fevers. SKIN: No bruising, hair changes or rashes. EYES: No blurred, double or loss of vision. NOSE AND THROAT: No history of nosebleeds, hoarseness or sore throat. HEART: No history of palpitations, chest pain or shortness of breath on exertion. LUNGS: Denies cough, hemoptysis, wheezing or shortness of breath. GASTROINTESTINAL: Denies changes in appetite, nausea, vomiting, diarrhea or constipation. GENITOURINARY: No history of frequency, urgency, hesitancy or nocturia. NEUROLOGIC: Denies history of numbness, tingling, tremor or weakness. PSYCHIATRIC: No history of panic, anxiety or depression. ENDOCRINE: No history of heat or cold intolerance, polyuria or polydipsia. EXTREMITIES: Denies muscle weakness, joint pain, pain on walking or stiffness. PHYSICAL EXAMINATION: VITAL SIGNS: Temperature afebrile, pulse 80, respirations 18, blood pressure 146/90. GENERAL: He is alert, cooperative. His is present. He is here in the ICU. His is very good support for him. HEART: Normal S1, S2. LUNGS: Clear. ABDOMEN: Soft, slightly tender. EXTREMITIES: No edema. SKIN: No rashes. ENDOCRINE: No thyromegaly. LYMPHATICS: No cervical nodes. HEMATOPOIETIC: No bruising. LABORATORY DATA: Electrolytes are now normal, but his potassium was low when he arrived. Hematology is normal. D-dimer 0.34. CPK 2475. Troponin 0. ASSESSMENT AND PLAN: Atypical chest pain that was thought to possibly be myocardial infarction, but now, I am concerned maybe he has gallstones. He certainly has an element of rhabdomyolysis. This could be from his dehydration, but also from his statin. We will go ahead and hold the statin, get an ultrasound of his abdomen. Consult GI. Continue home medicines, ICU monitoring, serial enzymes, serial EKGs. ABEL THOMAS DO DR: NANCY/joselyn JOB#: [id number] / [id number]
[2017-11-05] MEDS: LISINOPRIL 10 MG TABLET PO SCH (18:26)
[2017-11-05] MEDS ORDERED: ATORVASTATIN CALCIUM 40 MG TABLET. PO SCH (21:00)
--- NOTE | 2017-11-05 21:14 | RAD ---
Examination: Ultrasound abdomen limited HISTORY: History of lower right chest pain COMPARISON: None available FINDINGS: The echogenicity of the liver grossly appears unremarkable The pancreas is not well-visualized due to bowel gas. The visualized IVC is within normal limits of dimension. The right kidney measures 12.4 cm No evidence of gallstones. The common bile duct measures 4 mm in diameter. IMPRESSION: No evidence of gallstones. Electronically signed by: Hermelindo Gomez MD (11/05/2017 9:10 PM) [facility]
[2017-11-06 04:00] VITALS: BP 123/58
[2017-11-06] MEDS: IV NORMAL SALINE 1000ML BAG 1,000 ML IV SCH ×3 (04:16→19:26)
[2017-11-06 07:11] LABS: BASO % 0 % (0-3); EOS # 0.2 x10^3/uL (0.0-0.7); EOS % 3 % (0-3); HEMATOCRIT 38.1 % (39.0-53.0); HEMOGLOBIN 12.9 g/dL (13.0-17.5); LYMPH # 1.3 x10^3/uL (1.0-4.8); LYMPH % 19 % (24-48); MEAN CORPUSCULAR HEMOGLOBIN 30 pg (25-35); MEAN CORPUSCULAR HGB CONC 34 g/dL (31-37); MEAN CORPUSCULAR VOLUME 89 fL (79-100); MONO # 0.5 x10^3/uL (0.0-1.1); MONO % 8 % (0-9); NEUT # 4.6 x10^3uL (1.8-7.7); NEUT % 69 % (31-73); PLATELET COUNT 171 x10^3/uL (140-400); RED CELL DISTRIBUTION WIDTH 14.1 % (11.5-14.5); WHITE BLOOD COUNT 6.7 x10^3/uL (4.0-11.0)
[2017-11-06 07:21] LABS: CALCIUM 8.7 mg/dL (8.5-10.1); GFR 76.5; POTASSIUM 4.3 mmol/L (3.5-5.1)
[2017-11-06 07:22] LABS: MAGNESIUM 2.2 mg/dL (1.8-2.4)
[2017-11-06 08:00] VITALS: BP 129/69
[2017-11-06] MEDS: LISINOPRIL 10 MG TABLET PO SCH (08:32)
[2017-11-06] MEDS: ASPIRIN ENTERIC COATED 81 MG TABLET.DR. PO SCH (08:32)
--- NOTE | 2017-11-06 10:49 | PDOC ---
PROGRESS NOTES Chief Complaint Chief Complaint Atypical chest pain - not CAD rhabdomyolysis myocardial infarction, dehydration, obesity, BMI 35 History of Present Illness History of Present Illness continue IV fluid will check CK this PM, can DC if nearer 400 increase IV fluid to 175 Vitals Vitals Vital Signs Date Time Temp Pulse Resp B/P (MAP) Pulse Ox O2 Delivery O2 Flow Rate FiO2 11/06/17 08:32 69 129/69 11/06/17 08:00 99.0 18 98 Room Air 99.0 Physical Exam General: Alert, Oriented X3, Cooperative, No acute distress Heart: Regular rate Lungs: Clear Abdomen: Normal bowel sounds Extremities: No clubbing Skin: No rashes Labs LABS Laboratory Tests Test 11/06/17 06:50 White Blood Count 6.7 x10^3/uL (4.0-11.0) Red Blood Count 4.30 x10^6/uL (4.30-5.70) Hemoglobin 12.9 g/dL (13.0-17.5) Hematocrit 38.1 % (39.0-53.0) Mean Corpuscular Volume 89 fL (79-100) Mean Corpuscular Hemoglobin 30 pg (25-35) Mean Corpuscular Hemoglobin Concent 34 g/dL (31-37) Red Cell Distribution Width 14.1 % (11.5-14.5) Platelet Count 171 x10^3/uL (140-400) Neutrophils (%) (Auto) 69 % (31-73) Lymphocytes (%) (Auto) 19 % (24-48) Monocytes (%) (Auto) 8 % (0-9) Eosinophils (%) (Auto) 3 % (0-3) Basophils (%) (Auto) 0 % (0-3) Neutrophils # (Auto) 4.6 x10^3uL (1.8-7.7) Lymphocytes # (Auto) 1.3 x10^3/uL (1.0-4.8) Monocytes # (Auto) 0.5 x10^3/uL (0.0-1.1) Eosinophils # (Auto) 0.2 x10^3/uL (0.0-0.7) Basophils # (Auto) 0.0 x10^3/uL (0.0-0.2) Sodium Level 140 mmol/L (136-145) Potassium Level 4.3 mmol/L (3.5-5.1) Chloride Level 107 mmol/L (98-107) Carbon Dioxide Level 26 mmol/L (21-32) Anion Gap 7 (6-14) Blood Urea Nitrogen 8 mg/dL (8-26) Creatinine 1.0 mg/dL (0.7-1.3) Estimated GFR (Cockcroft-Gault) 76.5 Glucose Level 107 mg/dL (70-99) Calcium Level 8.7 mg/dL (8.5-10.1) Magnesium Level 2.2 mg/dL (1.8-2.4) Creatine Kinase 952 U/L (39-308) Creatine Kinase MB (Mass) 12.3 ng/mL (0.0-3.6) Creatine Kinase MB Relative Index 1.3 % (0-4) Comment Review of Relevant I have reviewed the following items bret (where applicable) has been applied. Labs Laboratory Tests Test 11/04/17 20:09 11/04/17 20:10 11/04/17 22:35 11/05/17 02:40 Bedside Troponin I 0.00 ng/ml (<0.08) White Blood Count 9.9 x10^3/uL (4.0-11.0) 6.9 x10^3/uL (4.0-11.0) Red Blood Count 4.81 x10^6/uL (4.30-5.70) 4.50 x10^6/uL (4.30-5.70) Hemoglobin 14.8 g/dL (13.0-17.5) 13.8 g/dL (13.0-17.5) Hematocrit 42.4 % (39.0-53.0) 39.6 % (39.0-53.0) Mean Corpuscular Volume 88 fL (79-100) 88 fL (79-100) Mean Corpuscular Hemoglobin 31 pg (25-35) 31 pg (25-35) Mean Corpuscular Hemoglobin Concent 35 g/dL (31-37) 35 g/dL (31-37) Red Cell Distribution Width 13.6 % (11.5-14.5) 13.9 % (11.5-14.5) Platelet Count 232 x10^3/uL (140-400) 209 x10^3/uL (140-400) Neutrophils (%) (Auto) 62 % (31-73) 76 % (31-73) Lymphocytes (%) (Auto) 28 % (24-48) 16 % (24-48) Monocytes (%) (Auto) 8 % (0-9) 6 % (0-9) Eosinophils (%) (Auto) 2 % (0-3) 2 % (0-3) Basophils (%) (Auto) 1 % (0-3) 0 % (0-3) Neutrophils # (Auto) 6.1 x10^3uL (1.8-7.7) 5.2 x10^3uL (1.8-7.7) Lymphocytes # (Auto) 2.8 x10^3/uL (1.0-4.8) 1.1 x10^3/uL (1.0-4.8) Monocytes # (Auto) 0.8 x10^3/uL (0.0-1.1) 0.4 x10^3/uL (0.0-1.1) Eosinophils # (Auto) 0.2 x10^3/uL (0.0-0.7) 0.1 x10^3/uL (0.0-0.7) Basophils # (Auto) 0.1 x10^3/uL (0.0-0.2) 0.0 x10^3/uL (0.0-0.2) D-Dimer (Elda) 0.34 ug/mlFEU (0.00-0.50) Sodium Level 136 mmol/L (136-145) 140 mmol/L (136-145) Potassium Level 3.3 mmol/L (3.5-5.1) 4.1 mmol/L (3.5-5.1) Chloride Level 98 mmol/L (98-107) 104 mmol/L (98-107) Carbon Dioxide Level 22 mmol/L (21-32) 27 mmol/L (21-32) Anion Gap 16 (6-14) 9 (6-14) Blood Urea Nitrogen 12 mg/dL (8-26) 13 mg/dL (8-26) Creatinine 1.2 mg/dL (0.7-1.3) 1.0 mg/dL (0.7-1.3) Estimated GFR (Cockcroft-Gault) 62.0 76.5 BUN/Creatinine Ratio 10 (6-20) 13 (6-20) Glucose Level 116 mg/dL (70-99) 144 mg/dL (70-99) Calcium Level 9.3 mg/dL (8.5-10.1) 8.7 mg/dL (8.5-10.1) Total Bilirubin 0.4 mg/dL (0.2-1.0) 0.3 mg/dL (0.2-1.0) Aspartate Amino Transf (AST/SGOT) 87 U/L (15-37) 59 U/L (15-37) Alanine Aminotransferase (ALT/SGPT) 94 U/L (16-63) 78 U/L (16-63) Alkaline Phosphatase 73 U/L (46-116) 63 U/L (46-116) Total Protein 7.6 g/dL (6.4-8.2) 6.4 g/dL (6.4-8.2) Albumin 4.4 g/dL (3.4-5.0) 3.7 g/dL (3.4-5.0) Albumin/Globulin Ratio 1.4 (1.0-1.7) 1.4 (1.0-1.7) Nasal Screen MRSA (PCR) Negative (Negative) Magnesium Level 2.0 mg/dL (1.8-2.4) Creatine Kinase 2475 U/L (39-308) Creatine Kinase MB (Mass) 28.5 ng/mL (0.0-3.6) Creatine Kinase MB Relative Index 1.2 % (0-4) Troponin I Quantitative < 0.017 ng/mL (0.000-0.055) Triglycerides Level 432 mg/dL (0-150) Cholesterol Level 159 mg/dL (0-200) LDL Cholesterol, Calculated 40 mg/dL (0-100) VLDL Cholesterol, Calculated 86 mg/dL (0-40) Non-HDL Cholesterol Calculated 126 mg/dL (0-129) HDL Cholesterol 33 mg/dL (40-60) Cholesterol/HDL Ratio 4.8 Test 11/06/17 06:50 White Blood Count 6.7 x10^3/uL (4.0-11.0) Red Blood Count 4.30 x10^6/uL (4.30-5.70) Hemoglobin 12.9 g/dL (13.0-17.5) Hematocrit 38.1 % (39.0-53.0) Mean Corpuscular Volume 89 fL (79-100) Mean Corpuscular Hemoglobin 30 pg (25-35) Mean Corpuscular Hemoglobin Concent 34 g/dL (31-37) Red Cell Distribution Width 14.1 % (11.5-14.5) Platelet Count 171 x10^3/uL (140-400) Neutrophils (%) (Auto) 69 % (31-73) Lymphocytes (%) (Auto) 19 % (24-48) Monocytes (%) (Auto) 8 % (0-9) Eosinophils (%) (Auto) 3 % (0-3) Basophils (%) (Auto) 0 % (0-3) Neutrophils # (Auto) 4.6 x10^3uL (1.8-7.7) Lymphocytes # (Auto) 1.3 x10^3/uL (1.0-4.8) Monocytes # (Auto) 0.5 x10^3/uL (0.0-1.1) Eosinophils # (Auto) 0.2 x10^3/uL (0.0-0.7) Basophils # (Auto) 0.0 x10^3/uL (0.0-0.2) Sodium Level 140 mmol/L (136-145) Potassium Level 4.3 mmol/L (3.5-5.1) Chloride Level 107 mmol/L (98-107) Carbon Dioxide Level 26 mmol/L (21-32) Anion Gap 7 (6-14) Blood Urea Nitrogen 8 mg/dL (8-26) Creatinine 1.0 mg/dL (0.7-1.3) Estimated GFR (Cockcroft-Gault) 76.5 Glucose Level 107 mg/dL (70-99) Calcium Level 8.7 mg/dL (8.5-10.1) Magnesium Level 2.2 mg/dL (1.8-2.4) Creatine Kinase 952 U/L (39-308) Creatine Kinase MB (Mass) 12.3 ng/mL (0.0-3.6) Creatine Kinase MB Relative Index 1.3 % (0-4) Laboratory Tests Test 11/06/17 06:50 White Blood Count 6.7 x10^3/uL (4.0-11.0) Red Blood Count 4.30 x10^6/uL (4.30-5.70) Hemoglobin 12.9 g/dL (13.0-17.5) Hematocrit 38.1 % (39.0-53.0) Mean Corpuscular Volume 89 fL (79-100) Mean Corpuscular Hemoglobin 30 pg (25-35) Mean Corpuscular Hemoglobin Concent 34 g/dL (31-37) Red Cell Distribution Width 14.1 % (11.5-14.5) Platelet Count 171 x10^3/uL (140-400) Neutrophils (%) (Auto) 69 % (31-73) Lymphocytes (%) (Auto) 19 % (24-48) Monocytes (%) (Auto) 8 % (0-9) Eosinophils (%) (Auto) 3 % (0-3) Basophils (%) (Auto) 0 % (0-3) Neutrophils # (Auto) 4.6 x10^3uL (1.8-7.7) Lymphocytes # (Auto) 1.3 x10^3/uL (1.0-4.8) Monocytes # (Auto) 0.5 x10^3/uL (0.0-1.1) Eosinophils # (Auto) 0.2 x10^3/uL (0.0-0.7) Basophils # (Auto) 0.0 x10^3/uL (0.0-0.2) Sodium Level 140 mmol/L (136-145) Potassium Level 4.3 mmol/L (3.5-5.1) Chloride Level 107 mmol/L (98-107) Carbon Dioxide Level 26 mmol/L (21-32) Anion Gap 7 (6-14) Blood Urea Nitrogen 8 mg/dL (8-26) Creatinine 1.0 mg/dL (0.7-1.3) Estimated GFR (Cockcroft-Gault) 76.5 Glucose Level 107 mg/dL (70-99) Calcium Level 8.7 mg/dL (8.5-10.1) Magnesium Level 2.2 mg/dL (1.8-2.4) Creatine Kinase 952 U/L (39-308) Creatine Kinase MB (Mass) 12.3 ng/mL (0.0-3.6) Creatine Kinase MB Relative Index 1.3 % (0-4) Medications Current Medications Fentanyl Citrate (Fentanyl 2ml Vial) 50 mcg 1X ONCE IV Last administered on 11/04/17at 20:19; Start 11/04/17 at 20:15; Stop 11/04/17 at 20:26; Status DC Nitroglycerin/ Dextrose 250 ml @ 0 mls/hr 1X ONCE IV Last administered on at 20:32; Start 11/04/17 at 20:30; Stop 11/04/17 at 20:31; Status DC Heparin Sodium (Porcine) (Heparin Sodium) 4,000 unit 1X ONCE IV Last administered on 11/04/17at 20:33; Start 11/04/17 at 20:30; Stop 11/04/17 at 20:31; Status DC Heparin Sodium/ Dextrose 0 ml @ As Directed STK-MED ONCE IV ; Start 11/04/17 at 20:30; Stop 11/04/17 at 20:31; Status DC Potassium Chloride (Klor-Con) 40 meq 1X ONCE PO Last administered on 11/04/17at 22:32; Start 11/04/17 at 20:30; Stop 11/04/17 at 20:36; Status DC Zolpidem Tartrate (Ambien) 5 mg PRN QHS PRN PO INSOMNIA; Start 11/04/17 at 20:30 Morphine Sulfate (Morphine Sulfate) 2 mg PRN Q2HR PRN IV severe pain Last administered on 11/04/17at 22:27; Start 11/04/17 at 20:30 Acetaminophen/ Hydrocodone Bitart (Lortab 5/325) 1 tab PRN Q4HRS PRN PO mild pain Last administered on 11/05/17at 00:04; Start 11/04/17 at 20:30 Nicotine (Nicoderm Cq 21mg) 1 patch PRN DAILY PRN TD SMOKING CESSATION; Start 11/04/17 at 20:30 Iodixanol (Visipaque 320) 100 ml STK-MED ONCE .ROUTE ; Start 11/04/17 at 20:53; Stop 11/04/17 at 20:54; Status DC Lidocaine HCl (Xylocaine 1% Pf 30ml Vial) 30 ml STK-MED ONCE .ROUTE ; Start 11/04 at 20:53; Stop 11/04/17 at 20:54; Status DC Heparin Sodium/ Sodium Chloride 1,000 ml @ As Directed STK-MED ONCE .ROUTE ; Start 11/04/17 at 20:53; Stop 11/04/17 at 20:54; Status DC Heparin Sodium/ Sodium Chloride 500 ml @ As Directed STK-MED ONCE .ROUTE ; Start 11/04/17 at 21:02; Stop 11/04/17 at 21:03; Status DC Fentanyl Citrate (Fentanyl 2ml Vial) 100 mcg STK-MED ONCE .ROUTE ; Start at 21:07; Stop 11/04/17 at 21:08; Status DC Midazolam HCl (Versed) 2 mg STK-MED ONCE .ROUTE ; Start 11/04/17 at 21:07; Stop 11/04/17 at 21:08; Status DC Heparin Sodium/ Sodium Chloride (HEPARIN for ARTERIAL LINE FLUSH) 1,000 unit 1X ONCE IART Last administered on 11/04/17at 21:30; Start 11/04/17 at 21:30; Stop 11/04/17 at 21:31; Status DC Midazolam HCl (Versed) 2 mg 1X ONCE IV ; Start 11/04/17 at 21:30; Stop 11/04/17 at 21:31; Status DC Fentanyl Citrate (Fentanyl 2ml Vial) 100 mcg 1X ONCE IV ; Start 11/04/17 at 21: 30; Stop 11/04/17 at 21:31; Status DC Iodixanol (Visipaque 320) 100 ml 1X ONCE IART Last administered on 11/04/17at 21 :30; Start 11/04/17 at 21:30; Stop 11/04/17 at 21:31; Status DC Lidocaine HCl (Xylocaine 1% Pf 30ml Vial) 30 ml 1X ONCE INJ Last administered on 11/04/17at 21:30; Start 11/04/17 at 21:30; Stop 11/04/17 at 21:31; Status DC Sodium Chloride (Normal Saline Flush) 3 ml QSHIFT PRN IV AFTER MEDS AND BLOOD DRAWS; Start 11/04/17 at 22:30 Sodium Chloride 1,000 ml @ 100 mls/hr Q10H IV Last administered on 11/05/17at 20 :18; Start 11/04/17 at 22:16 Aspirin (Ecotrin) 81 mg DAILYWBKFT PO Last administered on 11/06/17 08:32; Start 11/05/17 at 08:00 Nitroglycerin (Nitrostat) 0.4 mg PRN Q5MIN PRN SL CHEST PAIN; Start 11/04/17 at 22:30 Oxycodone/ Acetaminophen (Percocet 5/325) 2 tab PRN Q4HRS PRN PO MODERATE PAIN , SEVERE PAIN; Start 11/04/17 at 22:30 Ondansetron HCl (Zofran) 4 mg PRN Q6HRS PRN IV NAUSEA/VOMITING 1ST CHOICE Last administered on 11/05/17at 00:03; Start 11/05/17 at 00:00 Ibuprofen (Motrin) 600 mg PRN Q6HRS PRN PO INFLAMMATION Last administered on 20:19; Start 11/05/17 at 12:45 Atorvastatin Calcium (Lipitor) 40 mg QHS PO Last administered on 11/05/17 20:18 ; Start 11/05/17 at 21:00 Lisinopril (Prinivil) 10 mg DAILY PO Last administered on 11/06/17 08:32; Start 11/05/17 at 14:30 Active Scripts Active Reported Crestor (Rosuvastatin Calcium) 20 Mg Tablet 1 Tab PO DAILY Vitals/I & O Vital Sign - Last 24 Hours 11/05/17 11/05/17 11/05/17 11/05/17 12:00 16:00 18:26 20:00 Temp 98.8 98.8 98.8 98.8 98.8 98.8 Pulse 68 71 77 77 Resp 17 B/P (MAP) 140/64 (89) 131/65 (87) 140/73 140/73 (95) Pulse Ox 97 97 97 O2 Delivery Room Air Room Air Room Air 11/05/17 11/05/17 11/05/17 11/06/17 20:00 23:00 23:59 04:00 Temp 98.8 98.8 98.8 98.8 Pulse 74 69 Resp 17 17 B/P (MAP) 106/58 (74) 123/58 (79) Pulse Ox 100 100 O2 Delivery Room Air Room Air Room Air Room Air 11/06/17 11/06/17 11/06/17 11/06/17 04:00 08:00 08:00 08:32 Temp 99.0 99.0 Pulse 72 69 Resp 18 B/P (MAP) 129/69 (89) 129/69 Pulse Ox 98 O2 Delivery Room Air Room Air Room Air Intake and Output 11/05/17 11/05/17 11/06/17 15:00 23:00 07:00 Intake Total 300 ml 3500 ml 2602 ml Balance 300 ml 3500 ml 2602 ml DIANA WASHINGTON MD Nov 06, 2017 10:49
[2017-11-06] MEDS ORDERED: LISI10TA2 PO (11:00)
[2017-11-06 12:00] VITALS: BP 141/74
--- NOTE | 2017-11-06 13:33 | PDOC ---
PROGRESS NOTES Subjective Subjective Patient seen and examined The patient continues to look and feel better. Objective Objective Vital Signs Date Time Temp Pulse Resp B/P (MAP) Pulse Ox O2 Delivery O2 Flow Rate FiO2 11/06/17 12:00 99.3 66 16 141/74 (96) 97 Room Air 99.3 11/05/17 06:00 2.0 Intake and Output 11/06/17 07:00 Intake Total 6402 ml Balance 6402 ml Intake Oral 5300 ml IV Total 1102 ml # Voids 3 Physical Exam Abdomen: Normal bowel sounds Heart: Regular rate Extremities: No clubbing General: No acute distress Lungs: Clear to auscultation Assessment Assessment 1. Chest pain. No acute infarction. Cath showed no significant coronary artery disease and intact LV function. Normal aortic root. We'll continue on aspirin and statin medications for his hyperlipidemia. Lisinopril for hypertension. Increase activities. 2. Hyperlipidemia. Continue statins. 3. Hypertension. Continue DOC inhibitor. 4. Dehydration. Continue IV fluids. Creatinine initially elevated at 2475. Today at 952. Comment Review of Relevant I have reviewed the following items bret (where applicable) has been applied. Labs Laboratory Tests Test 11/04/17 20:09 11/04/17 20:10 11/04/17 22:35 11/05/17 02:40 Bedside Troponin I 0.00 ng/ml (<0.08) White Blood Count 9.9 x10^3/uL (4.0-11.0) 6.9 x10^3/uL (4.0-11.0) Red Blood Count 4.81 x10^6/uL (4.30-5.70) 4.50 x10^6/uL (4.30-5.70) Hemoglobin 14.8 g/dL (13.0-17.5) 13.8 g/dL (13.0-17.5) Hematocrit 42.4 % (39.0-53.0) 39.6 % (39.0-53.0) Mean Corpuscular Volume 88 fL (79-100) 88 fL (79-100) Mean Corpuscular Hemoglobin 31 pg (25-35) 31 pg (25-35) Mean Corpuscular Hemoglobin Concent 35 g/dL (31-37) 35 g/dL (31-37) Red Cell Distribution Width 13.6 % (11.5-14.5) 13.9 % (11.5-14.5) Platelet Count 232 x10^3/uL (140-400) 209 x10^3/uL (140-400) Neutrophils (%) (Auto) 62 % (31-73) 76 % (31-73) Lymphocytes (%) (Auto) 28 % (24-48) 16 % (24-48) Monocytes (%) (Auto) 8 % (0-9) 6 % (0-9) Eosinophils (%) (Auto) 2 % (0-3) 2 % (0-3) Basophils (%) (Auto) 1 % (0-3) 0 % (0-3) Neutrophils # (Auto) 6.1 x10^3uL (1.8-7.7) 5.2 x10^3uL (1.8-7.7) Lymphocytes # (Auto) 2.8 x10^3/uL (1.0-4.8) 1.1 x10^3/uL (1.0-4.8) Monocytes # (Auto) 0.8 x10^3/uL (0.0-1.1) 0.4 x10^3/uL (0.0-1.1) Eosinophils # (Auto) 0.2 x10^3/uL (0.0-0.7) 0.1 x10^3/uL (0.0-0.7) Basophils # (Auto) 0.1 x10^3/uL (0.0-0.2) 0.0 x10^3/uL (0.0-0.2) D-Dimer (Elda) 0.34 ug/mlFEU (0.00-0.50) Sodium Level 136 mmol/L (136-145) 140 mmol/L (136-145) Potassium Level 3.3 mmol/L (3.5-5.1) 4.1 mmol/L (3.5-5.1) Chloride Level 98 mmol/L (98-107) 104 mmol/L (98-107) Carbon Dioxide Level 22 mmol/L (21-32) 27 mmol/L (21-32) Anion Gap 16 (6-14) 9 (6-14) Blood Urea Nitrogen 12 mg/dL (8-26) 13 mg/dL (8-26) Creatinine 1.2 mg/dL (0.7-1.3) 1.0 mg/dL (0.7-1.3) Estimated GFR (Cockcroft-Gault) 62.0 76.5 BUN/Creatinine Ratio 10 (6-20) 13 (6-20) Glucose Level 116 mg/dL (70-99) 144 mg/dL (70-99) Calcium Level 9.3 mg/dL (8.5-10.1) 8.7 mg/dL (8.5-10.1) Total Bilirubin 0.4 mg/dL (0.2-1.0) 0.3 mg/dL (0.2-1.0) Aspartate Amino Transf (AST/SGOT) 87 U/L (15-37) 59 U/L (15-37) Alanine Aminotransferase (ALT/SGPT) 94 U/L (16-63) 78 U/L (16-63) Alkaline Phosphatase 73 U/L (46-116) 63 U/L (46-116) Total Protein 7.6 g/dL (6.4-8.2) 6.4 g/dL (6.4-8.2) Albumin 4.4 g/dL (3.4-5.0) 3.7 g/dL (3.4-5.0) Albumin/Globulin Ratio 1.4 (1.0-1.7) 1.4 (1.0-1.7) Nasal Screen MRSA (PCR) Negative (Negative) Magnesium Level 2.0 mg/dL (1.8-2.4) Creatine Kinase 2475 U/L (39-308) Creatine Kinase MB (Mass) 28.5 ng/mL (0.0-3.6) Creatine Kinase MB Relative Index 1.2 % (0-4) Troponin I Quantitative < 0.017 ng/mL (0.000-0.055) Triglycerides Level 432 mg/dL (0-150) Cholesterol Level 159 mg/dL (0-200) LDL Cholesterol, Calculated 40 mg/dL (0-100) VLDL Cholesterol, Calculated 86 mg/dL (0-40) Non-HDL Cholesterol Calculated 126 mg/dL (0-129) HDL Cholesterol 33 mg/dL (40-60) Cholesterol/HDL Ratio 4.8 Test 11/06/17 06:50 White Blood Count 6.7 x10^3/uL (4.0-11.0) Red Blood Count 4.30 x10^6/uL (4.30-5.70) Hemoglobin 12.9 g/dL (13.0-17.5) Hematocrit 38.1 % (39.0-53.0) Mean Corpuscular Volume 89 fL (79-100) Mean Corpuscular Hemoglobin 30 pg (25-35) Mean Corpuscular Hemoglobin Concent 34 g/dL (31-37) Red Cell Distribution Width 14.1 % (11.5-14.5) Platelet Count 171 x10^3/uL (140-400) Neutrophils (%) (Auto) 69 % (31-73) Lymphocytes (%) (Auto) 19 % (24-48) Monocytes (%) (Auto) 8 % (0-9) Eosinophils (%) (Auto) 3 % (0-3) Basophils (%) (Auto) 0 % (0-3) Neutrophils # (Auto) 4.6 x10^3uL (1.8-7.7) Lymphocytes # (Auto) 1.3 x10^3/uL (1.0-4.8) Monocytes # (Auto) 0.5 x10^3/uL (0.0-1.1) Eosinophils # (Auto) 0.2 x10^3/uL (0.0-0.7) Basophils # (Auto) 0.0 x10^3/uL (0.0-0.2) Sodium Level 140 mmol/L (136-145) Potassium Level 4.3 mmol/L (3.5-5.1) Chloride Level 107 mmol/L (98-107) Carbon Dioxide Level 26 mmol/L (21-32) Anion Gap 7 (6-14) Blood Urea Nitrogen 8 mg/dL (8-26) Creatinine 1.0 mg/dL (0.7-1.3) Estimated GFR (Cockcroft-Gault) 76.5 Glucose Level 107 mg/dL (70-99) Calcium Level 8.7 mg/dL (8.5-10.1) Magnesium Level 2.2 mg/dL (1.8-2.4) Creatine Kinase 952 U/L (39-308) Creatine Kinase MB (Mass) 12.3 ng/mL (0.0-3.6) Creatine Kinase MB Relative Index 1.3 % (0-4) Laboratory Tests Test 11/06/17 06:50 White Blood Count 6.7 x10^3/uL (4.0-11.0) Red Blood Count 4.30 x10^6/uL (4.30-5.70) Hemoglobin 12.9 g/dL (13.0-17.5) Hematocrit 38.1 % (39.0-53.0) Mean Corpuscular Volume 89 fL (79-100) Mean Corpuscular Hemoglobin 30 pg (25-35) Mean Corpuscular Hemoglobin Concent 34 g/dL (31-37) Red Cell Distribution Width 14.1 % (11.5-14.5) Platelet Count 171 x10^3/uL (140-400) Neutrophils (%) (Auto) 69 % (31-73) Lymphocytes (%) (Auto) 19 % (24-48) Monocytes (%) (Auto) 8 % (0-9) Eosinophils (%) (Auto) 3 % (0-3) Basophils (%) (Auto) 0 % (0-3) Neutrophils # (Auto) 4.6 x10^3uL (1.8-7.7) Lymphocytes # (Auto) 1.3 x10^3/uL (1.0-4.8) Monocytes # (Auto) 0.5 x10^3/uL (0.0-1.1) Eosinophils # (Auto) 0.2 x10^3/uL (0.0-0.7) Basophils # (Auto) 0.0 x10^3/uL (0.0-0.2) Sodium Level 140 mmol/L (136-145) Potassium Level 4.3 mmol/L (3.5-5.1) Chloride Level 107 mmol/L (98-107) Carbon Dioxide Level 26 mmol/L (21-32) Anion Gap 7 (6-14) Blood Urea Nitrogen 8 mg/dL (8-26) Creatinine 1.0 mg/dL (0.7-1.3) Estimated GFR (Cockcroft-Gault) 76.5 Glucose Level 107 mg/dL (70-99) Calcium Level 8.7 mg/dL (8.5-10.1) Magnesium Level 2.2 mg/dL (1.8-2.4) Creatine Kinase 952 U/L (39-308) Creatine Kinase MB (Mass) 12.3 ng/mL (0.0-3.6) Creatine Kinase MB Relative Index 1.3 % (0-4) Medications Current Medications Fentanyl Citrate (Fentanyl 2ml Vial) 50 mcg 1X ONCE IV Last administered on 11/04/17at 20:19; Start 11/04/17 at 20:15; Stop 11/04/17 at 20:26; Status DC Nitroglycerin/ Dextrose 250 ml @ 0 mls/hr 1X ONCE IV Last administered on at 20:32; Start 11/04/17 at 20:30; Stop 11/04/17 at 20:31; Status DC Heparin Sodium (Porcine) (Heparin Sodium) 4,000 unit 1X ONCE IV Last administered on 11/04/17at 20:33; Start 11/04/17 at 20:30; Stop 11/04/17 at 20:31; Status DC Heparin Sodium/ Dextrose 0 ml @ As Directed STK-MED ONCE IV ; Start 11/04/17 at 20:30; Stop 11/04/17 at 20:31; Status DC Potassium Chloride (Klor-Con) 40 meq 1X ONCE PO Last administered on 11/04/17at 22:32; Start 11/04/17 at 20:30; Stop 11/04/17 at 20:36; Status DC Zolpidem Tartrate (Ambien) 5 mg PRN QHS PRN PO INSOMNIA; Start 11/04/17 at 20:30 Morphine Sulfate (Morphine Sulfate) 2 mg PRN Q2HR PRN IV severe pain Last administered on 11/04/17at 22:27; Start 11/04/17 at 20:30 Acetaminophen/ Hydrocodone Bitart (Lortab 5/325) 1 tab PRN Q4HRS PRN PO mild pain Last administered on 11/05/17at 00:04; Start 11/04/17 at 20:30 Nicotine (Nicoderm Cq 21mg) 1 patch PRN DAILY PRN TD SMOKING CESSATION; Start 11/04/17 at 20:30 Iodixanol (Visipaque 320) 100 ml STK-MED ONCE .ROUTE ; Start 11/04/17 at 20:53; Stop 11/04/17 at 20:54; Status DC Lidocaine HCl (Xylocaine 1% Pf 30ml Vial) 30 ml STK-MED ONCE .ROUTE ; Start 11/04 at 20:53; Stop 11/04/17 at 20:54; Status DC Heparin Sodium/ Sodium Chloride 1,000 ml @ As Directed STK-MED ONCE .ROUTE ; Start 11/04/17 at 20:53; Stop 11/04/17 at 20:54; Status DC Heparin Sodium/ Sodium Chloride 500 ml @ As Directed STK-MED ONCE .ROUTE ; Start 11/04/17 at 21:02; Stop 11/04/17 at 21:03; Status DC Fentanyl Citrate (Fentanyl 2ml Vial) 100 mcg STK-MED ONCE .ROUTE ; Start at 21:07; Stop 11/04/17 at 21:08; Status DC Midazolam HCl (Versed) 2 mg STK-MED ONCE .ROUTE ; Start 11/04/17 at 21:07; Stop 11/04/17 at 21:08; Status DC Heparin Sodium/ Sodium Chloride (HEPARIN for ARTERIAL LINE FLUSH) 1,000 unit 1X ONCE IART Last administered on 11/04/17at 21:30; Start 11/04/17 at 21:30; Stop 11/04/17 at 21:31; Status DC Midazolam HCl (Versed) 2 mg 1X ONCE IV ; Start 11/04/17 at 21:30; Stop 11/04/17 at 21:31; Status DC Fentanyl Citrate (Fentanyl 2ml Vial) 100 mcg 1X ONCE IV ; Start 11/04/17 at 21: 30; Stop 11/04/17 at 21:31; Status DC Iodixanol (Visipaque 320) 100 ml 1X ONCE IART Last administered on 11/04/17at 21 :30; Start 11/04/17 at 21:30; Stop 11/04/17 at 21:31; Status DC Lidocaine HCl (Xylocaine 1% Pf 30ml Vial) 30 ml 1X ONCE INJ Last administered on 11/04/17at 21:30; Start 11/04/17 at 21:30; Stop 11/04/17 at 21:31; Status DC Sodium Chloride (Normal Saline Flush) 3 ml QSHIFT PRN IV AFTER MEDS AND BLOOD DRAWS; Start 11/04/17 at 22:30 Sodium Chloride 1,000 ml @ 175 mls/hr Q5H43M IV Last administered on 11/06/17at 12:46; Start 11/04/17 at 22:16 Aspirin (Ecotrin) 81 mg [id number] PO Last administered on 11/06/17at 08:32; Start 11/05/17 at 08:00 Nitroglycerin (Nitrostat) 0.4 mg PRN Q5MIN PRN SL CHEST PAIN; Start 11/04/17 at 22:30 Oxycodone/ Acetaminophen (Percocet 5/325) 2 tab PRN Q4HRS PRN PO MODERATE PAIN , SEVERE PAIN; Start 11/04/17 at 22:30 Ondansetron HCl (Zofran) 4 mg PRN Q6HRS PRN IV NAUSEA/VOMITING 1ST CHOICE Last administered on 11/05/17at 00:03; Start 11/05/17 at 00:00 Ibuprofen (Motrin) 600 mg PRN Q6HRS PRN PO INFLAMMATION Last administered on 20:19; Start 11/05/17 at 12:45 Atorvastatin Calcium (Lipitor) 40 mg QHS PO Last administered on 11/05/17at 20:18 ; Start 11/05/17 at 21:00; Stop 11/06/17 at 10:51; Status DC Lisinopril (Prinivil) 10 mg DAILY PO Last administered on 11/06/17at 08:32; Start 11/05/17 at 14:30 Active Scripts Active Lisinopril 10 Mg Tablet 10 Mg PO DAILY Reported Crestor (Rosuvastatin Calcium) 20 Mg Tablet 1 Tab PO DAILY Vitals/I & O Vital Sign - Last 24 Hours 11/05/17 11/05/17 11/05/17 11/05/17 16:00 18:26 20:00 20:00 Temp 98.8 98.8 98.8 98.8 Pulse 71 77 77 Resp 17 17 B/P (MAP) 131/65 (87) 140/73 140/73 (95) Pulse Ox 97 97 O2 Delivery Room Air Room Air Room Air 11/05/17 11/05/17 11/06/17 11/06/17 23:00 23:59 04:00 04:00 Temp 98.8 98.8 98.8 98.8 Pulse 74 69 Resp 17 17 B/P (MAP) 106/58 (74) 123/58 (79) Pulse Ox 100 100 O2 Delivery Room Air Room Air Room Air Room Air 11/06/17 11/06/17 11/06/17 11/06/17 08:00 08:00 08:32 12:00 Temp 99.0 99.3 99.0 99.3 Pulse 72 69 66 Resp 18 16 B/P (MAP) 129/69 (89) 129/69 141/74 (96) Pulse Ox 98 97 O2 Delivery Room Air Room Air Room Air Intake and Output 11/05/17 11/05/17 11/06/17 15:00 23:00 07:00 Intake Total 300 ml 3500 ml 2602 ml Balance 300 ml 3500 ml 2602 ml OSBALDO PIZARRO MD Nov 06, 2017 13:33
[2017-11-06 16:00] VITALS: BP 131/53
[2017-11-06 20:00] VITALS: BP 120/58
[2017-11-07 04:00] VITALS: BP 129/64
[2017-11-07 05:40] LABS: BASO % 1 % (0-3); EOS # 0.2 x10^3/uL (0.0-0.7); EOS % 3 % (0-3); HEMATOCRIT 38.7 % (39.0-53.0); LYMPH # 1.4 x10^3/uL (1.0-4.8); LYMPH % 19 % (24-48); MEAN CORPUSCULAR HEMOGLOBIN 30 pg (25-35); MEAN CORPUSCULAR HGB CONC 34 g/dL (31-37); MEAN CORPUSCULAR VOLUME 90 fL (79-100); MONO # 0.6 x10^3/uL (0.0-1.1); MONO % 8 % (0-9); NEUT # 5.3 x10^3uL (1.8-7.7); NEUT % 70 % (31-73); PLATELET COUNT 172 x10^3/uL (140-400); RED BLOOD COUNT 4.31 x10^6/uL (4.30-5.70); WHITE BLOOD COUNT 7.6 x10^3/uL (4.0-11.0)
[2017-11-07 06:09] LABS: CALCIUM 8.5 mg/dL (8.5-10.1); GFR 76.5; POTASSIUM 4.1 mmol/L (3.5-5.1)
[2017-11-07 08:38] VITALS: BP 127/71
--- NOTE | 2017-11-07 09:30 | PDOC2 ---
GI CONSULT Reason For Consult: Atypical chest pain HPI: HPI: 61 y/o male admitted w/ intense chest mid/left chest pressure (no radiation) that began while eating chicken and shrimp at [id number]. Earlier that day was playing golf in the heat with his sons. Cardiac cath yesterday was unrevealing and he has discharge orders for today. Long ago perhaps had some issues w/ dysphagia (says liquid and food) w/ "chest pain" that quickly resolved. Admitting chest pain was nothing like this. Occasional indigestion after eating spicy foods, improved w/ the occasional Tums. No n/v, abd pain, diarrhea, constipation, hematochezia, melena, change in appetite, or weight loss. NSAIDs BID for LBP. No liver, pancreas, or GB history. No previous EGD or colonoscopy. PMH: PMH: HTN, HLD, SCC w/ radiation FH: Family History: Cancer (mother - "intestinal" and liver, other materal relatives - bone, lung, breast), CAD Social History: Smoke: No ALCOHOL: occassional Drugs: None ROS: GEN: Denies fevers, chills, sweats HEENT: Denies blurred vision, sore throat CV: Denies chest pain RESP: Denies shortness of air, cough GI: Per HPI : Denies hematuria, dysuria ENDO: Denies weight changes NEURO: Denies confusion, dizziness MSK: +chronic back pain SKIN: Denies jaundice, pruritus Vitals: Vitals: Vital Signs Date Time Temp Pulse Resp B/P (MAP) Pulse Ox O2 Delivery O2 Flow Rate FiO2 11/07/17 08:38 97.7 68 18 127/71 (89) 96 Room Air 97.7 Labs: Labs: Laboratory Tests Test 11/06/17 17:00 11/07/17 04:45 Creatine Kinase 892 U/L (39-308) White Blood Count 7.6 x10^3/uL (4.0-11.0) Red Blood Count 4.31 x10^6/uL (4.30-5.70) Hemoglobin 13.0 g/dL (13.0-17.5) Hematocrit 38.7 % (39.0-53.0) Mean Corpuscular Volume 90 fL (79-100) Mean Corpuscular Hemoglobin 30 pg (25-35) Mean Corpuscular Hemoglobin Concent 34 g/dL (31-37) Red Cell Distribution Width 14.0 % (11.5-14.5) Platelet Count 172 x10^3/uL (140-400) Neutrophils (%) (Auto) 70 % (31-73) Lymphocytes (%) (Auto) 19 % (24-48) Monocytes (%) (Auto) 8 % (0-9) Eosinophils (%) (Auto) 3 % (0-3) Basophils (%) (Auto) 1 % (0-3) Neutrophils # (Auto) 5.3 x10^3uL (1.8-7.7) Lymphocytes # (Auto) 1.4 x10^3/uL (1.0-4.8) Monocytes # (Auto) 0.6 x10^3/uL (0.0-1.1) Eosinophils # (Auto) 0.2 x10^3/uL (0.0-0.7) Basophils # (Auto) 0.0 x10^3/uL (0.0-0.2) Sodium Level 141 mmol/L (136-145) Potassium Level 4.1 mmol/L (3.5-5.1) Chloride Level 109 mmol/L (98-107) Carbon Dioxide Level 25 mmol/L (21-32) Anion Gap 7 (6-14) Blood Urea Nitrogen 9 mg/dL (8-26) Creatinine 1.0 mg/dL (0.7-1.3) Estimated GFR (Cockcroft-Gault) 76.5 Glucose Level 106 mg/dL (70-99) Calcium Level 8.5 mg/dL (8.5-10.1) Allergies: Coded Allergies: No Known Drug Allergies (Unverified , 11/04/17) Medications: Please see EMR. Imaging: Imaging: CXR IMPRESSION: No acute process. US FINDINGS: The echogenicity of the liver grossly appears unremarkable The pancreas is not well-visualized due to bowel gas. The visualized IVC is within normal limits of dimension. The right kidney measures 12.4 cm No evidence of gallstones. The common bile duct measures 4 mm in diameter. IMPRESSION: No evidence of gallstones. Cardiac Cath <Conclusion> 1. No angiographic evidence of significant coronary artery disease. 2. Normal left ventricular systolic function. 3. Normal aortic root. PE: GEN: NAD HEENT: Atraumatic, PERRL LUNGS: CTAB HEART: RRR ABD: NABS, S/ND/NT EXTREMITY: No edema SKIN: No rashes, no jaundice NEURO/PSYCH: A & O 3 A/P: A/P: Chest pressure - resolved, cardiac cath negative Rhabdo ?h/o dysphagia - long ago w/ "chest pain" Rare dyspepsia CRC screen, ?FH colon cancer - none NSAID use Mild transaminitis - better, US unrevealing, ?related to rhabdo -- Plans for discharge. Needs outpt EGD and screening colonoscopy - our office will contact. Consider empiric acid-brine purifier considering non-cardiac chest pain + NSAID use. ELANA WALDEN Nov 07, 2017 09:30
[2017-11-07 10:16] VITALS: BP 150/76
[2017-11-07] MEDS: ASPIRIN ENTERIC COATED 81 MG TABLET.DR. PO SCH (10:16)
[2017-11-07] MEDS: LISINOPRIL 10 MG TABLET PO SCH (10:16)
--- NOTE | 2017-11-07 14:02 | PDOC3 ---
Discharge Summary Visit Information Date of Admission: Nov 04, 2017 Date of Discharge: Nov 07, 2017 Admitting Diagnosis: chest pain, angina, Final Diagnosis Atypical chest pain - not CAD, muscle cramp rhabdomyolysis, likely from statin therapy dehydration, obesity, BMI 35 Brief Hospital Course Allergies Allergies Coded Allergies Type Severity Reaction Last Updated Verified No Known Drug Allergies 11/04/17 No Vital Signs Vital Signs Date Time Temp Pulse Resp B/P (MAP) Pulse Ox O2 Delivery O2 Flow Rate FiO2 11/07/17 10:16 76 150/76 11/07/17 09:39 Room Air 11/07/17 08:38 97.7 18 96 97.7 Lab Results Laboratory Tests Test 11/06/17 06:50 11/06/17 17:00 11/07/17 04:45 White Blood Count 6.7 x10^3/uL (4.0-11.0) 7.6 x10^3/uL (4.0-11.0) Red Blood Count 4.30 x10^6/uL (4.30-5.70) 4.31 x10^6/uL (4.30-5.70) Hemoglobin 12.9 g/dL (13.0-17.5) 13.0 g/dL (13.0-17.5) Hematocrit 38.1 % (39.0-53.0) 38.7 % (39.0-53.0) Mean Corpuscular Volume 89 fL (79-100) 90 fL (79-100) Mean Corpuscular Hemoglobin 30 pg (25-35) 30 pg (25-35) Mean Corpuscular Hemoglobin Concent 34 g/dL (31-37) 34 g/dL (31-37) Red Cell Distribution Width 14.1 % (11.5-14.5) 14.0 % (11.5-14.5) Platelet Count 171 x10^3/uL (140-400) 172 x10^3/uL (140-400) Neutrophils (%) (Auto) 69 % (31-73) 70 % (31-73) Lymphocytes (%) (Auto) 19 % (24-48) 19 % (24-48) Monocytes (%) (Auto) 8 % (0-9) 8 % (0-9) Eosinophils (%) (Auto) 3 % (0-3) 3 % (0-3) Basophils (%) (Auto) 0 % (0-3) 1 % (0-3) Neutrophils # (Auto) 4.6 x10^3uL (1.8-7.7) 5.3 x10^3uL (1.8-7.7) Lymphocytes # (Auto) 1.3 x10^3/uL (1.0-4.8) 1.4 x10^3/uL (1.0-4.8) Monocytes # (Auto) 0.5 x10^3/uL (0.0-1.1) 0.6 x10^3/uL (0.0-1.1) Eosinophils # (Auto) 0.2 x10^3/uL (0.0-0.7) 0.2 x10^3/uL (0.0-0.7) Basophils # (Auto) 0.0 x10^3/uL (0.0-0.2) 0.0 x10^3/uL (0.0-0.2) Sodium Level 140 mmol/L (136-145) 141 mmol/L (136-145) Potassium Level 4.3 mmol/L (3.5-5.1) 4.1 mmol/L (3.5-5.1) Chloride Level 107 mmol/L (98-107) 109 mmol/L (98-107) Carbon Dioxide Level 26 mmol/L (21-32) 25 mmol/L (21-32) Anion Gap 7 (6-14) 7 (6-14) Blood Urea Nitrogen 8 mg/dL (8-26) 9 mg/dL (8-26) Creatinine 1.0 mg/dL (0.7-1.3) 1.0 mg/dL (0.7-1.3) Estimated GFR (Cockcroft-Gault) 76.5 76.5 Glucose Level 107 mg/dL (70-99) 106 mg/dL (70-99) Calcium Level 8.7 mg/dL (8.5-10.1) 8.5 mg/dL (8.5-10.1) Magnesium Level 2.2 mg/dL (1.8-2.4) Creatine Kinase 952 U/L (39-308) 892 U/L (39-308) Creatine Kinase MB (Mass) 12.3 ng/mL (0.0-3.6) Creatine Kinase MB Relative Index 1.3 % (0-4) Laboratory Tests Test 11/06/17 17:00 11/07/17 04:45 Creatine Kinase 892 U/L (39-308) White Blood Count 7.6 x10^3/uL (4.0-11.0) Red Blood Count 4.31 x10^6/uL (4.30-5.70) Hemoglobin 13.0 g/dL (13.0-17.5) Hematocrit 38.7 % (39.0-53.0) Mean Corpuscular Volume 90 fL (79-100) Mean Corpuscular Hemoglobin 30 pg (25-35) Mean Corpuscular Hemoglobin Concent 34 g/dL (31-37) Red Cell Distribution Width 14.0 % (11.5-14.5) Platelet Count 172 x10^3/uL (140-400) Neutrophils (%) (Auto) 70 % (31-73) Lymphocytes (%) (Auto) 19 % (24-48) Monocytes (%) (Auto) 8 % (0-9) Eosinophils (%) (Auto) 3 % (0-3) Basophils (%) (Auto) 1 % (0-3) Neutrophils # (Auto) 5.3 x10^3uL (1.8-7.7) Lymphocytes # (Auto) 1.4 x10^3/uL (1.0-4.8) Monocytes # (Auto) 0.6 x10^3/uL (0.0-1.1) Eosinophils # (Auto) 0.2 x10^3/uL (0.0-0.7) Basophils # (Auto) 0.0 x10^3/uL (0.0-0.2) Sodium Level 141 mmol/L (136-145) Potassium Level 4.1 mmol/L (3.5-5.1) Chloride Level 109 mmol/L (98-107) Carbon Dioxide Level 25 mmol/L (21-32) Anion Gap 7 (6-14) Blood Urea Nitrogen 9 mg/dL (8-26) Creatinine 1.0 mg/dL (0.7-1.3) Estimated GFR (Cockcroft-Gault) 76.5 Glucose Level 106 mg/dL (70-99) Calcium Level 8.5 mg/dL (8.5-10.1) Brief Hospital Course Mr. 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 STOP statin lisinopril started for htn, CK was 2500 on admit, then to 900, lipitor given and CK did not budge despite 175mls/hr NS, Discharge Information Condition at Discharge: Improved Follow Up: Weeks Disposition/Orders: D/C to Home Scheduled Lisinopril (Lisinopril) 10 Mg Tablet, 10 MG PO DAILY, #30 Prescribed by: DIANA WASHINGTON on 11/06/17 1100 Discontinued Medications Rosuvastatin Calcium (Crestor) 20 Mg Tablet, 1 TAB PO DAILY, #30 Ref 5 (Reported ) Entered as Reported by: Des Diamond on 11/04/172346 Last Taken: Unknown Dose on 11/04/17 Last Action: New Order on 11/04/172346 by DIANA Stevenson MD Nov 07, 2017 14:02
== END 2017-11-07 11:08 | disposition home or self-care (01) | DRG 287 ==
LOC: ER 20:04 → 1 WEST ICU 20:50 → 2 NORTH 11-05 12:54 → 1 WEST ICU 11-05 13:33 → 5 SOUTH 11-07 08:21
PROVIDERS: ADMIT Internal Medicine; ATTEND Internal Medicine
PROC: 4A023N7 Measurement of Cardiac Sampling and Pressure, Left Heart, Percutaneous Approach (ICD-10-PCS; principal; 2017-11-05)
PROC: B2111ZZ Fluoroscopy of Multiple Coronary Arteries using Low Osmolar Contrast (ICD-10-PCS; 2017-11-05)
PROC: B2151ZZ Fluoroscopy of Left Heart using Low Osmolar Contrast (ICD-10-PCS; 2017-11-05)
PROC: B3101ZZ Fluoroscopy of Thoracic Aorta using Low Osmolar Contrast (ICD-10-PCS; 2017-11-05)
DX: R07.89 Other chest pain (principal); M62.82 Rhabdomyolysis; I44.7 Left bundle-branch block, unspecified; E78.5 Hyperlipidemia, unspecified; I10 Essential (primary) hypertension; E87.6 Hypokalemia; E86.0 Dehydration; E66.9 Obesity, unspecified; T46.6X5A Adverse effect of antihyperlipidemic and antiarteriosclerotic drugs, initial encounter; Z82.49 Family history of ischemic heart disease and other diseases of the circulatory system; Z83.3 Family history of diabetes mellitus; Z80.0 Family history of malignant neoplasm of digestive organs; Z80.1 Family history of malignant neoplasm of trachea, bronchus and lung; Z80.3 Family history of malignant neoplasm of breast; Z68.35 Body mass index [BMI] 35.0-35.9, adult; Y92.89 Other specified places as the place of occurrence of the external cause
CPT/HCPCS: 36415; 71045; 76705; 80048; 80053; 80061; 82550; 82553; 83735; 84484; 85025; 85379; 87641; 93005; 93458; 93567; 96365; 96366; 96375; C1769; C1771; C1892; G0269; J1644; J2270; J2405; J3010; J3490; J7030; 99291-25